=== PATIENT | female | born 1955 | race African-American/Black ===

== ENCOUNTER 2017-08-23 18:01 | Observation (INO) | payer OTHER ==
--- NOTE | 2017-08-23 19:07 | PDOC ---
History of Present Illness - General Chief Complaint: Palpitations Stated Complaint: PALPITATION Time Seen by Provider: 08/23/17 18:09 - History of Present Illness Initial Comments: 08/23/17 19:02 "The patient is a 62 year old female, with a significant past medical history of HTN, HLD, CAD, CHF (EF 35%) and rheumatologic disorders, who presents to the emergency department from [facility]) Urgent Care for evaluation of palpitations and SOB. Pt states that at 4pm today she began to feel her heart race. She took her pulse and measured it to be at around 100. She also endorses chest pressure and SOB. Since arriving to ER, her palpitations have resolved, but she continues to endorse chest pressure and mild SOB. Denies orthopnea. Denies leg swelling. Pt recently had temporal artery biopsy and was started on prednisone 1 week ago for temporal arteritis. She denies headache and dizziness. She denies fever, chills, nausea, vomit, diarrhea and constipation. She denies dysuria, frequency, urgency and hematuria. Allergies: aspirin, penicillins, pseudoephedrine, (see nursing note for more) Past surgical history: left temporal biopsy Social history: Pt denies toxic habits " Past History - Past Medical History Allergies/Adverse Reactions: Allergies Allergy/AdvReac Type Severity Reaction Status Date / Time aspirin Allergy Mild Rash Verified 08/23/17 18:13 Penicillins Allergy Mild Rash Verified 08/23/17 18:13 pseudoephedrine HCl Allergy Mild Difficulty Verified 08/23/17 18:13 [From Sudafed] Breathing Sulfa (Sulfonamide Allergy Mild Rash Verified 08/23/17 18:13 Antibiotics) [Sulfa(Sulfonamide Antibiotics)] acetaminophen [From Tylenol] Allergy Verified 08/23/17 18:15 codeine Allergy Verified 08/23/17 18:13 diphenhydramine HCl Allergy Verified 08/23/17 18:13 [From Benadryl] etanercept Allergy Verified 08/23/17 18:14 fludrocortisone Allergy Verified 08/23/17 18:14 gluten Allergy Verified 08/23/17 18:14 infliximab Allergy Verified 08/23/17 18:14 lactase [From Dairy Aid] Allergy Verified 08/23/17 18:14 naproxen Allergy Verified 08/23/17 18:13 NSAIDS (Non-Steroidal Allergy Verified 08/23/17 18:15 Anti-Inflamma pneumococcal vaccine Allergy Verified 08/23/17 18:13 pregabalin Allergy Verified 08/23/17 18:15 succimer Allergy Verified 08/23/17 18:14 Tetracyclines Allergy Verified 08/23/17 18:15 wheat Allergy Verified 08/23/17 18:15 Beef Containing Products AdvReac Mild Vomiting Verified 08/23/17 18:13 Home Medications: Ambulatory Orders Carvedilol [Coreg] 3.125 mg PO BID #60 tablet 03/07/16 Levothyroxine [Synthroid -] 88 mcg PO DAILY@0700 #30 tablet 03/07/16 Enalapril Maleate [Vasotec -] 5 mg PO BID 08/09/16 Cyclosporine [Restasis] 1 each OU Q12H 08/23/17 Epinephrine (Epi-Pen 0.3MG) [Epipen 0.3MG -] 0.3 mg IM ASDIR 08/23/17 Flaxseed Oil [Flaxseed] mg PO ASDIR 08/23/17 Hydroxychloroquine Sulfate [Plaquenil] 200 mg PO DAILY 08/23/17 Lidocaine 5% Patch [Lidoderm -] 1 patch TP DAILY 08/23/17 Prednisone [Deltasone -] 40 mg PO DAILY 08/23/17 Cardiac Disorders: Yes (CHF) COPD: (ILD) GI Disorders: Yes (IBS/GLUTEN INTOL) HTN: (HYPOTENSION) Thyroid Disease: Yes (hypothyroid.) Other medical history: TEMPORAL ARTERITIS - Surgical History Abdominal Surgery: Yes (tummy tuck/breast reduction 2004) - Suicide/Smoking/Psychosocial Hx Smoking Status: No Smoking History: Never smoked Have you smoked in the past 12 months: No Number of Cigarettes Smoked Daily: 0 Hx Alcohol Use: No Drug/Substance Use Hx: No Substance Use Type: None Hx Substance Use Treatment: No Review of Systems - Review of Systems Comments:: 08/23/17 19:04 """GENERAL/CONSTITUTIONAL: No fever or chills. No weakness. HEAD, EYES, EARS, NOSE AND THROAT: No change in vision. No ear pain or discharge. No sore throat. CARDIOVASCULAR: +chest pain, palpitations, and SOB RESPIRATORY: No cough, wheezing, or hemoptysis. GASTROINTESTINAL: No nausea, vomiting, diarrhea or constipation. GENITOURINARY: No dysuria, frequency, or change in urination. MUSCULOSKELETAL: No joint or muscle swelling or pain. No neck or back pain. SKIN: No rash NEUROLOGIC: No headache, vertigo, loss of consciousness, or change in strength/ sensation. ENDOCRINE: No increased thirst. No abnormal weight change. HEMATOLOGIC/LYMPHATIC: No anemia, easy bleeding, or history of blood clots. ALLERGIC/IMMUNOLOGIC: No hives or skin allergy. """ *Physical Exam - Vital Signs Last Vital Signs Temp Pulse Resp BP Pulse Ox 98.6 F 64 18 89/52 98 08/24/17 12:00 08/24/17 12:00 08/24/17 12:00 08/24/17 12:00 08/24/17 07:36 - Physical Exam Comments: 08/23/17 19:05 """GENERAL: Awake, alert, and fully oriented, in no acute distress HEAD: No signs of trauma EYES: PERRLA, EOMI, sclera anicteric, conjunctiva clear ENT: Auricles normal inspection, hearing grossly normal, nares patent, oropharynx clear without exudates. Moist mucosa NECK: Nontender, no stepoffs, Normal ROM, supple, no lymphadenopathy, JVD, or masses LUNGS: Breath sounds equal, clear to auscultation bilaterally. No wheezes, and no crackles HEART: Regular rate and rhythm, normal S1 and S2, no murmurs, rubs or gallops ABDOMEN: Soft, nontender, normoactive bowel sounds. No guarding, no rebound. No masses EXTREMITIES: Normal range of motion, no edema. No clubbing or cyanosis. No cords, erythema, or tenderness NEUROLOGICAL: Cranial nerves II through XII intact. 5/5 strength and sensation in all extremities, Normal speech, normal gait SKIN: Warm, Dry, normal turgor, no rashes or lesions noted. """ Heart Score/ECG Review - History History: Moderately suspicious - Electrocardiogram EKG: Non specific repolarization disturbance - Age Age: 45-65 - Risk Factors Risk Factors Heart Score: Yes Hx Hypercholesterolemia, Yes Hx Hypertension, Yes Hx Obesity Based on the list above the patient has:: >/=3 risk factors or Hx atherosclerotic disease - ECG Impressions Comment:: 08/23/17 19:05 NSR, LBBB, no KELLIE/STDs, no TWIs, unchanged since prior EKG. ED Treatment Course - LABORATORY CBC & Chemistry Diagram: 08/24/17 07:37 08/24/17 07:37 - ADDITIONAL ORDERS Additional order review: 08/23/17 18:55 RBC 3.43 L MCV 92.0 MCHC 34.6 RDW 11.8 MPV 8.0 Neutrophils % 75.1 D Lymphocytes % 15.6 D Monocytes % 5.3 Eosinophils % 0.0 D Basophils % 4.0 H D - RADIOLOGY Radiology Studies Ordered: Category Date Time Status CHEST PA & LAT [RAD] Stat Radiology 08/23/17 18:51 Completed - Medications Given in the ED: ED Medications Discontinued Medications Generic Name Dose Route Start Last Admin Trade Name Freq PRN Reason Stop Dose Admin Carvedilol 3.125 mg 08/24/17 10:00 08/24/17 09:57 Coreg - PO 3.125 mg BID LADI Administration Enalapril Maleate 5 mg 08/24/17 10:00 08/24/17 09:57 Vasotec - PO 5 mg BID LADI Administration Hydroxychloroquine Sulfate 200 mg 08/24/17 10:00 08/24/17 09:55 Plaquenil - PO 200 mg DAILY LADI Administration Levothyroxine Sodium 88 mcg 08/24/17 07:00 08/24/17 06:10 Synthroid - PO 88 mcg DAILY@0700 LADI Administration Prednisone 40 mg 08/24/17 10:00 08/24/17 09:57 Deltasone - PO 40 mg DAILY LADI Administration Medical Decision Making - Medical Decision Making 08/23/17 19:08 62 F with CAD, CHF, HTN, HLD presenting to ER with chest pressure, palpitations , and SOB. Concerning for ACS as pt has significant cardiac history. EKG with no new ischemic changes compared to prior. Also consider CHF exacerbation. PE is less likely as pt has no recent immobilization, no leg swelling, and is not hypoxic or tachycardic in ER. - Labs, trop, BNP - CXR - Admit tele 7PM Case discussed in detail with oncoming Emergency Physician, Dr. Plascencia, including history, physical exam and ancillary studies. Oncoming Emergency Physician has assumed care for the patient and will complete the evaluation and treatment. Patient is aware of the plan. *DC/Admit/Observation/Transfer Diagnosis at time of Disposition: Palpitations, Left bundle branch block (LBBB) Chest pain Qualifiers: Chest pain type: unspecified Qualified Code(s): R07.9 - Chest pain, unspecified - Discharge Dispostion Condition at time of disposition: Fair Admit: Yes - Attestations Physician Attestion: 08/25/17 10:23 I, Dr. Kelby Rao MD, attest that this document has been prepared under my direction and personally reviewed by me in its entirety. I further attest, that it accurately reflects all work, treatment, procedures and medical decision -making performed by me.
[2017-08-23 19:13] LABS: MCH 31.8 pg (25.7-33.7)
[2017-08-23 19:15] LABS: MCHC 34.6 g/dl (32.0-36.0); NEUTROPHILS 75.1 % (42.8-82.8); PLATELET COUNT 251 K/MM3 (134-434); RDW 11.8 % (11.6-15.6); WHITE BLOOD COUNT 10.6 K/mm3 (4.0-10.8)
[2017-08-23 19:18] LABS: INR 1.07 (0.82-1.09)
[2017-08-23 19:22] LABS: CPK 67 IU/L (26-192)
[2017-08-23 19:23] LABS: ALBUMIN 3.8 g/dl (3.5-5.0); ALK PHOS 60 U/L (32-92); ANION GAP 2 (8-16); BILIRUBIN,TOTAL 0.4 mg/dl (0.2-1.0); CALCIUM 9.3 mg/dl (8.4-10.2); CO2 29 mmol/L (22-28); CREATININE 0.8 mg/dl (0.6-1.3); GLUCOSE,RANDOM 96 mg/dl (74-106); SGOT/AST 18 U/L (10-42); SGPT/ALT 23 U/L (10-40); TOT PROT 7.4 g/dl (6.4-8.3)
--- NOTE | 2017-08-23 19:37 | PDOC ---
*Physical Exam - Vital Signs Last Vital Signs Temp Pulse Resp BP Pulse Ox 98.6 F 88 16 95/66 100 08/23/17 18:05 08/23/17 18:05 08/23/17 18:05 08/23/17 18:05 08/23/17 18:05 ED Treatment Course - LABORATORY CBC & Chemistry Diagram: 08/23/17 18:55 08/23/17 18:55 - ADDITIONAL ORDERS Additional order review: Laboratory Results 08/23/17 08/23/17 08/23/17 18:55 18:55 18:55 PT with INR 12.0 INR 1.07 PTT (Actin FS) Sodium 133 L Potassium 4.3 Chloride 102 Carbon Dioxide 29 H Anion Gap 2 L BUN 20 H D Creatinine 0.8 Creat Clearance w eGFR > 60 Random Glucose 96 Calcium 9.3 Total Bilirubin 0.4 AST 18 D ALT 23 D Alkaline Phosphatase 60 D Creatine Kinase 67 Total Protein 7.4 Albumin 3.8 08/23/17 18:55 PT with INR INR PTT (Actin FS) 27.1 Sodium Potassium Chloride Carbon Dioxide Anion Gap BUN Creatinine Creat Clearance w eGFR Random Glucose Calcium Total Bilirubin AST ALT Alkaline Phosphatase Creatine Kinase Total Protein Albumin 08/23/17 18:55 RBC 3.43 L MCV 92.0 MCHC 34.6 RDW 11.8 MPV 8.0 Neutrophils % 75.1 D Lymphocytes % 15.6 D Monocytes % 5.3 Eosinophils % 0.0 D Basophils % 4.0 H D Progress Note - Progress Note Progress Note: Care of this patient was transferred to [place] from Dr. elder at 1930. Patient is a 62-year-old female with significant history of autoimmune disease and swelling as coronary artery disease. He has dermatomyositis and rheumatoid arthritis. Patient also has at her baseline on her cardiogram a left bundle branch block. Patient came in today with approximately 4 hours of chest pressure, palpitations and shortness of breath. Patient's cardiogram was unchanged from prior. Palpitations have since resolved however her chest pressure is still present and she rates it as mild. Patient's workup is pending. Patient will be admitted to the hospitalist service once her workup is complete. Patient's troponin was negative and her workup was otherwise unremarkable. Discussed admission with the hospitalist patient will be placed in an observation bed to rule out ACS. *DC/Admit/Observation/Transfer Diagnosis at time of Disposition: Palpitations, Left bundle branch block (LBBB) Chest pain Qualifiers: Chest pain type: unspecified Qualified Code(s): R07.9 - Chest pain, unspecified - Discharge Dispostion Condition at time of disposition: Fair Admit: Yes
[2017-08-23 19:59] LABS: TROPONIN I (DFP) < 0.03 ng/ml (0.03-0.50)
[2017-08-23 21:48] VITALS: BMI 27.6
--- NOTE | 2017-08-23 22:41 | HP ---
CHIEF COMPLAINT: chest pressure, SOB, palpitations PCP: outside facility, Cardio: Theo Meade HISTORY OF PRESENT ILLNESS: This is a 62 year old female with a past medical history significant for Hypotension, CHF (EF35%) who presented with sudden onset palpitations, SOB and chest pressure at 4pm today. Pt reports pressure has resolved and palpitations are less but SOB persists when she gets up to go to the bathroom. ER course was notable for: (1) troponin neg (2) BNP 563 (3) CXR without pulmonary vascular congestion or infiltrates Recent Travel: pt denies PAST MEDICAL HISTORY: Hypotension CHF (recent cardiac cath with EF 35%) Sjogrens RA temporal arteritis (dx 1 week ago) on prednisone Reynaud's IBS/gluten intolerant PAST SURGICAL HISTORY: L temporal artery biopsy tummy tuck/breast reduction Social History: Smoking: pt denies Alcohol: pt denies Drugs: pt denies Family History: mother age 71, COPD, DM father in his 30s, drugs/ETOH one half brother with sickle cell one son age 34, dx with HF, recent ablation for arrhythmia one son with asthma Allergies aspirin Allergy (Mild, Verified 08/23/17 18:13) Rash Penicillins Allergy (Mild, Verified 08/23/17 18:13) Rash pseudoephedrine HCl [From Sudafed] Allergy (Mild, Verified 08/23/17 18:13) Difficulty Breathing Sulfa (Sulfonamide Antibiotics) [Sulfa(Sulfonamide Antibiotics)] Allergy (Mild, Verified 08/23/17 18:13) Rash acetaminophen [From Tylenol] Allergy (Verified 08/23/17 18:15) codeine Allergy (Verified 08/23/17 18:13) Diphenhydramine HCl [From Benadryl] Allergy (Verified 08/23/17 18:13) etanercept Allergy (Verified 08/23/17 18:14) fludrocortisone Allergy (Verified 08/23/17 18:14) gluten Allergy (Verified 08/23/17 18:14) infliximab Allergy (Verified 08/23/17 18:14) lactase [From Dairy Aid] Allergy (Verified 08/23/17 18:14) naproxen Allergy (Verified 08/23/17 18:13) NSAIDS (Non-Steroidal Anti-Inflamma Allergy (Verified 08/23/17 18:15) pneumococcal vaccine Allergy (Verified 08/23/17 18:13) pregabalin Allergy (Verified 08/23/17 18:15) succimer Allergy (Verified 08/23/17 18:14) Tetracyclines Allergy (Verified 08/23/17 18:15) wheat Allergy (Verified 08/23/17 18:15) Beef Containing Products Adverse Reaction (Mild, Verified 08/23/17 18:13) Vomiting HOME MEDICATIONS: 3 Medication Instructions Recorded Carvedilol [Coreg] 3.125 mg PO BID #60 tablet 03/07/16 Levothyroxine [Synthroid -] 88 mcg PO DAILY@0700 #30 tablet 03/07/16 Enalapril Maleate [Vasotec -] 5 mg PO BID 08/09/16 Cyclosporine [Restasis] 1 each OU Q12H 08/23/17 Epinephrine (Epi-Pen 0.3MG) 0.3 mg IM ASDIR 08/23/17 [Epipen 0.3MG -] Flaxseed Oil [Flaxseed] mg PO ASDIR 08/23/17 Hydroxychloroquine Sulfate 200 mg PO DAILY 08/23/17 [Plaquenil] Lidocaine 5% Patch [Lidoderm Patch 1 patch TP DAILY 08/23/17 -] Prednisone [Deltasone -] 40 mg PO DAILY 08/23/17 REVIEW OF SYSTEMS CONSTITUTIONAL: Absent: fever, chills, diaphoresis, generalized weakness, malaise, loss of appetite, weight change HEENT: Absent: rhinorrhea, nasal congestion, throat pain, throat swelling, difficulty swallowing, mouth swelling, ear pain, eye pain, visual changes CARDIOVASCULAR: Present: chest pain, palpitations Absent: syncope, irregular heart rate, lightheadedness, peripheral edema RESPIRATORY: Present: shortness of breath, dyspnea with exertion Absent: cough, orthopnea, wheezing, stridor, hemoptysis GASTROINTESTINAL: Absent: abdominal pain, abdominal distension, nausea, vomiting, diarrhea, constipation, melena, hematochezia GENITOURINARY: Absent: dysuria, frequency, urgency, hesitancy, hematuria, flank pain, genital pain MUSCULOSKELETAL: Absent: myalgia, arthralgia, joint swelling, back pain, neck pain SKIN: Absent: rash, itching, pallor HEMATOLOGIC/IMMUNOLOGIC: Absent: easy bleeding, easy bruising, lymphadenopathy, frequent infections ENDOCRINE: Absent: unexplained weight gain, unexplained weight loss, heat intolerance, cold intolerance NEUROLOGIC: Absent: headache, focal weakness or paresthesias, dizziness, unsteady gait, seizure, mental status changes, bladder or bowel incontinence PSYCHIATRIC: Absent: anxiety, depression, suicidal or homicidal ideation, hallucinations. PHYSICAL EXAMINATION Vital Signs - 24 hr 3 08/23/17 08/23/17 08/23/17 08/23/17 18:05 20:30 20:40 22:46 Temperature 98.6 F 97.8 F 97.8 F Pulse Rate 88 78 Pulse Rate [ 62 Left Apical] Respiratory 16 16 18 Rate Blood Pressure 95/66 96/57 Blood Pressure 114/72 [Right Arm] O2 Sat by Pulse 100 99 99 100 Oximetry (%) GENERAL: Awake, alert, and fully oriented, in no acute distress. HEAD: Normal with no signs of trauma. bandage clean dry and intact to right baptism EYES: Pupils equal, round and reactive to light, extraocular movements intact, sclera anicteric, conjunctiva clear. No lid lag. EARS, NOSE, THROAT: Ears normal, nares patent, oropharynx clear without exudates. Moist mucous membranes. NECK: Normal range of motion, supple without lymphadenopathy, JVD, or masses. LUNGS: Breath sounds equal, clear to auscultation bilaterally. No wheezes, and no crackles. No accessory muscle use. HEART: Regular rate and rhythm, normal S1 and S2 without murmur, rub or gallop. ABDOMEN: Soft, nontender, not distended, normoactive bowel sounds, no guarding, no rebound, no masses. No hepatomegaly or splenomegaly. MUSCULOSKELETAL: Normal range of motion at all joints. No bony deformities or tenderness. No CVA tenderness. UPPER EXTREMITIES: 2+ pulses, warm, well-perfused. No cyanosis. No clubbing. No peripheral edema. LOWER EXTREMITIES: 2+ pulses, warm, well-perfused. No calf tenderness. No peripheral edema. NEUROLOGICAL: Cranial nerves II-XII intact. Normal speech. Normal gait. PSYCHIATRIC: Cooperative. Good eye contact. Appropriate mood and affect. SKIN: Warm, dry, normal turgor, no rashes or lesions noted, normal capillary refill. Laboratory Results - last 24 hr 3 08/23/17 08/23/17 08/23/17 18:55 18:55 18:55 WBC 10.6 D RBC 3.43 L Hgb 10.9 Hct 31.5 L MCV 92.0 MCH 31.8 MCHC 34.6 RDW 11.8 Plt Count 251 D MPV 8.0 Neutrophils % 75.1 D Lymphocytes % 15.6 D Monocytes % 5.3 Eosinophils % 0.0 D Basophils % 4.0 H D PT with INR 12.0 INR 1.07 PTT (Actin FS) 27.1 Sodium 133 L Potassium 4.3 Chloride 102 Carbon Dioxide 29 H Anion Gap 2 L BUN 20 H D Creatinine 0.8 Creat Clearance w eGFR > 60 Random Glucose 96 Calcium 9.3 Total Bilirubin 0.4 AST 18 D ALT 23 D Alkaline Phosphatase 60 D Creatine Kinase 67 Troponin I < 0.03 L B-Natriuretic Peptide 563.16 H Total Protein 7.4 Albumin 3.8 Radiology Reports Chest x-ray, PA and lateral. Since prior chest x-ray dated 03/04/2016, the cardiac silhouette remains slightly enlarged. Bilateral perihilar increased lung markings are present without evidence of focal infiltrates. Mediastinum and visualized osseous structures appear grossly intact with evidence of osteopenia. Impression No significant interval change. Mild cardiomegaly without gross evidence of pulmonary venous congestion or focal infiltrates. Reported By: Montse Shepard MD 08/23/171930 ECG Sinus rhythm with 1st degree AV block Vent rate 66, QTC 471 LBBB, Left axis deviation (present on previous ECG) ASSESSMENT/PLAN: 62yF with PMH Hypotension, CHF (recent cardiac cath with EF 35%), Sjogrens, RA, temporal arteritis (dx 1 week ago) on prednisone, Reynaud's, IBS/gluten intolerant presented with palpitations associated with chest pressure and SOB. She is being admitted for further observation. Palpitations/chest pressure - troponin neg x 1, trend x 2 more - cont cardiac monitoring - cardiology consult chronic systolic CHF - cont home VALENCIA/coreg - no s/s acute exacerbation despite elevated BNP Sjogren's - cont restasis temporal arteritis - cont prednisone 40mg qd hypothyroid - cont synthroid DVT PPX - low risk, expected LOS <48h, encourage ambulation FEN - tolerating po, IVF not indicated - BMP in am - gluten free diet with multiple restriction. Dispo: Pt currently requires inpatient cardiac monitoring for management of her emergent condition. Visit type - Emergency Visit Emergency Visit: Yes ED Registration Date: 08/23/17 Care time: The patient presented to the Emergency Department on the above date and was hospitalized for further evaluation of their emergent condition. - New Patient This patient is new to me today: Yes Date on this admission: 08/23/17 - Critical Care Critical Care patient: No
[2017-08-23] MEDS ORDERED: PATIENT'S OWN MEDICATION (NON-FORMULARY) (Cyclosporine [Restasis] 1 EACH) OU SCH (23:45)
[2017-08-24 01:51] LABS: CPK 71 IU/L (26-192)
[2017-08-24 01:52] LABS: TROPONIN I < 0.02 ng/ml (0.00-0.05)
[2017-08-24 05:49] VITALS: TEMP 98.6
[2017-08-24] MEDS ORDERED: LEVOTHYROXINE NA 88 MCG TABLET (FP) PO SCH (07:00)
[2017-08-24 08:02] LABS: BASOPHIL 0.6 % (0-2.0); EOSINOPHIL 0.3 % (0-4.5); MCH 30.9 pg (25.7-33.7); MCHC 32.5 g/dl (32.0-36.0); NEUTROPHILS 62.9 % (42.8-82.8); PLATELET COUNT 268 K/MM3 (134-434); RDW 12.1 % (11.6-15.6)
[2017-08-24 08:24] LABS: ANION GAP 3 (8-16); CO2 30 mmol/L (22-28); GLUCOSE,RANDOM 81 mg/dl (74-106); PHOSPHOROUS 4.5 mg/dl (2.5-4.6)
[2017-08-24] MEDS: predniSONE 20 MG TABLET (UD) PO SCH ×2 (08:33→09:57)
[2017-08-24] MEDS: HYDROXYCHLOROQUINE SO4 200 MG TABLET (FP) PO SCH ×2 (08:34→09:55)
[2017-08-24 08:37] VITALS: BP 89/52; PULSE 64
--- NOTE | 2017-08-24 09:24 | DS ---
Physical Exam: SUBJECTIVE: Patient seen and examined OBJECTIVE: Vital Signs Period Temp Pulse Resp BP Sys/Acevedo Pulse Ox Last 24 Hr 97.8 F-98.6 F 64-78 16-18 89-96/50-57 98-100 PHYSICAL EXAM GENERAL: The patient is awake, alert, and fully oriented, in no acute distress. HEAD: Normal with no signs of trauma. EYES: PERRL, extraocular movements intact, sclera anicteric, conjunctiva clear. ENT: Ears normal, nares patent, oropharynx clear without exudates, moist mucous membranes. NECK: Trachea midline, full range of motion, supple. LUNGS: Breath sounds equal, clear to auscultation bilaterally, no wheezes, no crackles, no accessory muscle use. HEART: Regular rate and rhythm, S1, S2 without murmur, rub or gallop. ABDOMEN: Soft, nontender, nondistended, normoactive bowel sounds, no guarding, no rebound, no hepatosplenomegaly, no masses. EXTREMITIES: 2+ pulses, warm, well-perfused, no edema. NEUROLOGICAL: Cranial nerves II through XII grossly intact. Normal speech, gait not observed. PSYCH: Normal mood, normal affect. SKIN: Warm, dry, normal turgor, no rashes or lesions noted. LABS Laboratory Results - last 24 hr 08/24/17 08/24/17 08/24/17 01:00 07:37 07:37 WBC 8.0 RBC 3.51 L Hgb 10.8 Hct 33.3 MCV 95.0 MCH 30.9 MCHC 32.5 RDW 12.1 Plt Count 268 MPV 8.0 Neutrophils % 62.9 Lymphocytes % 29.5 D Monocytes % 6.7 Eosinophils % 0.3 D Basophils % 0.6 Sodium 135 L Potassium 4.4 Chloride 102 Carbon Dioxide 30 H Anion Gap 3 L BUN 13 D Random Glucose 81 Calcium 9.0 Phosphorus 4.5 Magnesium 2.0 Creatine Kinase 71 Troponin I < 0.02 08/24/17 07:37 WBC RBC Hgb Hct MCV MCH MCHC RDW Plt Count MPV Neutrophils % Lymphocytes % Monocytes % Eosinophils % Basophils % Sodium Potassium Chloride Carbon Dioxide Anion Gap BUN Random Glucose Calcium Phosphorus Magnesium Creatine Kinase Troponin I < 0.03 L HOSPITAL COURSE: Date of Admission:08/23/17 Date of Discharge: 08/24/17 Minutes to complete discharge: 45 Discharge Summary Reason For Visit: CHEST PAIN, PALPITATIONS, R/O ACS Current Active Problems Chest pain (Acute) Left bundle branch block (LBBB) (Acute) Left ventricular systolic dysfunction, NYHA class 2 (Acute) Nonischemic dilated cardiomyopathy (Acute) Palpitations (Acute) Condition: Fair - Home Medications Comprehensive Discharge Medication List: Ambulatory Orders Carvedilol [Coreg] 3.125 mg PO BID #60 tablet 03/07/16 Levothyroxine [Synthroid -] 88 mcg PO DAILY@0700 #30 tablet 03/07/16 Enalapril Maleate [Vasotec -] 5 mg PO BID 08/09/16 Cyclosporine [Restasis] 1 each OU Q12H 08/23/17 Epinephrine (Epi-Pen 0.3MG) [Epipen 0.3MG -] 0.3 mg IM ASDIR 08/23/17 Flaxseed Oil [Flaxseed] mg PO ASDIR 08/23/17 Hydroxychloroquine Sulfate [Plaquenil] 200 mg PO DAILY 08/23/17 Lidocaine 5% Patch [Lidoderm Patch -] 1 patch TP DAILY 08/23/17 Prednisone [Deltasone -] 40 mg PO DAILY 08/23/17
[2017-08-24] MEDS ORDERED: ENALAPRIL MALEATE 5 MG TABLET (FP) PO SCH ×2 (10:00)
[2017-08-24] MEDS ORDERED: PATIENT'S OWN MEDICATION (NON-FORMULARY) (Cyclosporine [Restasis] 1 EACH) OU SCH (10:00)
[2017-08-24] MEDS ORDERED: CARVEDILOL 3.125 MG TABLET (FP) PO SCH ×2 (10:00)
[2017-08-24 10:14] LABS: CREATININE 0.7 mg/dl (0.6-1.3)
--- NOTE | 2017-08-24 11:44 | EKG ---
Test Reason : Blood Pressure : / mmHG Vent. Rate : 066 BPM Atrial Rate : 066 BPM P-R Int : 212 ms QRS Dur : 158 ms QT Int : 450 ms P-R-T Axes : 060 -45 088 degrees QTc Int : 471 ms SINUS RHYTHM WITH 1ST DEGREE A-V BLOCK LEFT AXIS DEVIATION LEFT BUNDLE BRANCH BLOCK ABNORMAL ECG WHEN COMPARED WITH ECG OF 12-JAN-2013 18:07, LEFT BUNDLE BRANCH BLOCK IS NOW PRESENT CRITERIA FOR ANTERIOR INFARCT ARE NO LONGER PRESENT Confirmed by DEMETRA MATHEWS MD ([id number] on 08/24/2017 11:44:07 AM Referred By: DR MENDOZA Confirmed By:DEMETRA MATHEWS MD
== END 2017-08-24 14:30 | disposition home or self-care (01) ==
LOC: FER 18:01 → FM/S 20:40
PROVIDERS: ADMIT Internal Medicine; ATTEND Nurse Practitioner Family
DX: R07.9 Chest pain, unspecified (principal); I44.7 Left bundle-branch block, unspecified; R00.2 Palpitations; I50.23 Acute on chronic systolic (congestive) heart failure; M35.00 Sjogren syndrome, unspecified; M31.6 Other giant cell arteritis; E03.9 Hypothyroidism, unspecified; I10 Essential (primary) hypertension; E78.5 Hyperlipidemia, unspecified; I25.10 Atherosclerotic heart disease of native coronary artery without angina pectoris; K58.9 Irritable bowel syndrome, unspecified; Z88.0 Allergy status to penicillin; Z88.6 Allergy status to analgesic agent; Z88.8 Allergy status to other drugs, medicaments and biological substances; Z91.011 Allergy to milk products; Z91.018 Allergy to other foods; I51.5 Myocardial degeneration
CPT/HCPCS: 36415; 71020-TC; 80048; 80053; 83735; 83880; 84100; 84484; 85025; 85610; 85730; 93005; 99285-25; G0378

== ENCOUNTER 2017-09-19 18:39 | Emergency (ER) | payer OTHER ==
--- NOTE | 2017-09-19 18:49 | PDOC ---
History of Present Illness - General Chief Complaint: Respiratory Stated Complaint: SHORTNESS OF BREATH COUGH AND FELT HEART BEATING - History of Present Illness Initial Comments: 09/20/17 07:15 Patient brought into the emergency room with shortness of breath. Briefly evaluated. No acute distress. Lungs clear to auscultation. Lab studies, EKG, and x-ray ordered. Signed out to Dr. Gary 7 PM pending complete evaluation and treatment. Past History - Past Medical History Allergies/Adverse Reactions: Allergies Allergy/AdvReac Type Severity Reaction Status Date / Time pseudoephedrine HCl Allergy Intermediate Difficulty Verified 09/19/17 19:23 [From Sudafed] Breathing aspirin Allergy Mild Rash Verified 09/19/17 19:22 Penicillins Allergy Mild Rash Verified 09/19/17 19:23 Sulfa (Sulfonamide Allergy Mild Rash Verified 09/19/17 19:23 Antibiotics) [Sulfa(Sulfonamide Antibiotics)] acetaminophen [From Tylenol] Allergy Verified 09/19/17 19:24 codeine Allergy Verified 09/19/17 19:24 diphenhydramine HCl Allergy Verified 09/19/17 19:24 [From Benadryl] etanercept Allergy Verified 09/19/17 19:25 fludrocortisone Allergy Verified 09/19/17 19:25 gluten Allergy Verified 09/19/17 19:25 infliximab Allergy Verified 09/19/17 19:25 lactase [From Dairy Aid] Allergy Verified 09/19/17 19:25 naproxen Allergy Verified 09/19/17 19:25 NSAIDS (Non-Steroidal Allergy Verified 09/19/17 19:25 Anti-Inflamma pneumococcal vaccine Allergy Verified 09/19/17 19:25 pregabalin Allergy Verified 09/19/17 19:25 succimer Allergy Verified 09/19/17 19:25 Tetracyclines Allergy Verified 09/19/17 19:25 wheat Allergy Verified 09/19/17 19:25 Beef Containing Products AdvReac Mild Vomiting Verified 08/23/17 18:13 Home Medications: Ambulatory Orders Carvedilol [Coreg] 3.125 mg PO BID #60 tablet 03/07/16 Enalapril Maleate [Vasotec -] 5 mg PO BID 08/09/16 Cyclosporine [Restasis] 1 each OU Q12H 08/23/17 Epinephrine (Epi-Pen 0.3MG) [Epipen 0.3MG -] 0.3 mg IM ASDIR 08/23/17 Hydroxychloroquine Sulfate [Plaquenil] 200 mg PO DAILY 08/23/17 Lidocaine 5% Patch [Lidoderm -] 1 patch TP DAILY 08/23/17 Prednisone [Deltasone -] 10 mg PO 08/23/17 Methylprednisolone [Medrol -] 4 mg PO ASDIR #12 tablet 09/19/17 Anemia: Yes Asthma: No Cancer: No Cardiac Disorders: Yes (CHF) COPD: (ILD) CHF: Yes GI Disorders: Yes (IBS/GLUTEN INTOL) Disorders: No HTN: Yes Hypercholesterolemia: Yes Liver Disease: No Thyroid Disease: Yes (hypothyroid.) - Surgical History Abdominal Surgery: Yes (tummy tuck/breast reduction 2004) Appendectomy: Yes - Suicide/Smoking/Psychosocial Hx Smoking Status: No Smoking History: Never smoked Have you smoked in the past 12 months: No Number of Cigarettes Smoked Daily: 0 Hx Alcohol Use: No Drug/Substance Use Hx: No Substance Use Type: None Hx Substance Use Treatment: No ED Treatment Course - LABORATORY CBC & Chemistry Diagram: 09/19/17 19:21 09/19/17 19:21 *DC/Admit/Observation/Transfer Diagnosis at time of Disposition: Hx of temporal arteritis - Discharge Dispostion Disposition: HOME Condition at time of disposition: Stable - Prescriptions Prescriptions: Methylprednisolone [Medrol -] 4 mg PO ASDIR #12 tablet - Patient Instructions Printed Discharge Instructions: Temporal Arteritis Additional Instructions: Alternate 12 mg Medrol (3 tabs of 4 mg each) with 16 mg daily as previously directed Continue other medications as prescribed Drink plenty of fluids Return to ER if you have severe weakness/palpitations/shortness of breath Follow-up with your payroll specialist as scheduled
[2017-09-19 18:56] VITALS: TEMP 98.3; BMI 28.1
[2017-09-19 19:38] LABS: BASOPHIL 0.2 % (0-2.0); MCH 32.6 pg (25.7-33.7); MEAN PLT VOLUME 7.9 fl (7.5-11.1); NEUTROPHILS 74.2 % (42.8-82.8); PLATELET COUNT 273 K/MM3 (134-434); RDW 12.1 % (11.6-15.6); WHITE BLOOD COUNT 6.5 K/mm3 (4.0-10.8)
[2017-09-19 19:55] LABS: ALBUMIN 3.6 g/dl (3.5-5.0); ALK PHOS 68 U/L (32-92); ANION GAP 7 (8-16); BILIRUBIN,TOTAL 0.6 mg/dl (0.2-1.0); CALCIUM 9.3 mg/dl (8.4-10.2); CO2 28 mmol/L (22-28); CPK 47 IU/L (26-192); CREATININE 0.9 mg/dl (0.6-1.3); GLUCOSE,RANDOM 108 mg/dl (74-106); SGOT/AST 23 U/L (10-42); SGPT/ALT 27 U/L (10-40); TOT PROT 6.8 g/dl (6.4-8.3)
[2017-09-19] MEDS ORDERED: SODIUM CHLORIDE 500 ML IV STA (20:22)
[2017-09-19 20:30] LABS: TROPONIN I (DFP) < 0.03 ng/ml (0.03-0.50)
--- NOTE | 2017-09-19 20:55 | PDOC ---
History of Present Illness - History of Present Illness Initial Comments: 09/19/17 20:55 62 year old female, with a significant past medical history of HTN, HLD, CAD, CHF, temporal arteritis and rheumatologic disorders, who presents to the emergency department with palpitations and SOB since about 6 pm today. She checked her pulse, which was 116. Patient reports the SOB was a sudden onset when she was finishing up dinner. She also reports chronic headaches since her temporal arteritis. She also reports poor side effects from the tapering of prednisone. Patient denies chest pain, dizziness. Denies fever, chills. Denies NVD. <Joyce Moran - Last Filed: 09/19/17 21:01> <Rosio Gary - Last Filed: 09/20/17 06:08> - General Chief Complaint: Respiratory Stated Complaint: SHORTNESS OF BREATH COUGH AND FELT HEART BEATING Time Seen by Provider: 09/19/17 19:17 Past History <Joyce Moran - Last Filed: 09/19/17 21:01> - Past Medical History Anemia: Yes Asthma: No Cancer: No Cardiac Disorders: Yes (CHF) COPD: (ILD) CHF: Yes GI Disorders: Yes (IBS/GLUTEN INTOL) Disorders: No HTN: Yes Hypercholesterolemia: Yes Liver Disease: No Thyroid Disease: Yes (hypothyroid.) Other medical history: TEMPORAL ARTERITIS - Surgical History Abdominal Surgery: Yes (tummy tuck/breast reduction 2004) Appendectomy: Yes - Suicide/Smoking/Psychosocial Hx Smoking Status: No Smoking History: Never smoked Have you smoked in the past 12 months: No Number of Cigarettes Smoked Daily: 0 Information on smoking cessation initiated: No Hx Alcohol Use: No Drug/Substance Use Hx: No Substance Use Type: None Hx Substance Use Treatment: No <Rosio Gary - Last Filed: 09/20/17 06:08> - Past Medical History Allergies/Adverse Reactions: Allergies Allergy/AdvReac Type Severity Reaction Status Date / Time pseudoephedrine HCl Allergy Intermediate Difficulty Verified 09/19/17 19:23 [From Sudafed] Breathing aspirin Allergy Mild Rash Verified 09/19/17 19:22 Penicillins Allergy Mild Rash Verified 09/19/17 19:23 Sulfa (Sulfonamide Allergy Mild Rash Verified 09/19/17 19:23 Antibiotics) [Sulfa(Sulfonamide Antibiotics)] acetaminophen [From Tylenol] Allergy Verified 09/19/17 19:24 codeine Allergy Verified 09/19/17 19:24 diphenhydramine HCl Allergy Verified 09/19/17 19:24 [From Benadryl] etanercept Allergy Verified 09/19/17 19:25 fludrocortisone Allergy Verified 09/19/17 19:25 gluten Allergy Verified 09/19/17 19:25 infliximab Allergy Verified 09/19/17 19:25 lactase [From Dairy Aid] Allergy Verified 09/19/17 19:25 naproxen Allergy Verified 09/19/17 19:25 NSAIDS (Non-Steroidal Allergy Verified 09/19/17 19:25 Anti-Inflamma pneumococcal vaccine Allergy Verified 09/19/17 19:25 pregabalin Allergy Verified 09/19/17 19:25 succimer Allergy Verified 09/19/17 19:25 Tetracyclines Allergy Verified 09/19/17 19:25 wheat Allergy Verified 09/19/17 19:25 Beef Containing Products AdvReac Mild Vomiting Verified 08/23/17 18:13 Home Medications: Ambulatory Orders Carvedilol [Coreg] 3.125 mg PO BID #60 tablet 03/07/16 Enalapril Maleate [Vasotec -] 5 mg PO BID 08/09/16 Cyclosporine [Restasis] 1 each OU Q12H 08/23/17 Epinephrine (Epi-Pen 0.3MG) [Epipen 0.3MG -] 0.3 mg IM ASDIR 08/23/17 Hydroxychloroquine Sulfate [Plaquenil] 200 mg PO DAILY 08/23/17 Lidocaine 5% Patch [Lidoderm -] 1 patch TP DAILY 08/23/17 Prednisone [Deltasone -] 10 mg PO 08/23/17 Methylprednisolone [Medrol -] 4 mg PO ASDIR #12 tablet 09/19/17 Review of Systems - Review of Systems Constitutional: No: Chills, Diaphoresis, Fever HEENTM: No: Symptoms Reported Respiratory: Yes: Shortness of Breath. No: Cough, Wheezing Cardiac (ROS): Yes: Palpitations. No: Chest Pain, Edema, Lightheadedness ABD/GI: No: Symptoms Reported Musculoskeletal: No: Back Pain, Neck Pain Neurological: Yes: Headache. No: Numbness, Tingling, Dizziness All Other Systems: Reviewed and Negative <Joyce Moran - Last Filed: 09/19/17 21:01> *Physical Exam - Vital Signs Last Vital Signs Temp Pulse Resp BP Pulse Ox 98.3 F 82 20 88/65 100 09/19/17 18:42 09/19/17 19:56 09/19/17 19:56 09/19/17 20:35 09/19/17 19:56 - Physical Exam Comments: 09/19/17 20:56 GENERAL: The patient is awake, alert, and fully oriented, in no acute distress. HEAD: Normal with no signs of trauma. EYES: Pupils equal, round and reactive to light, extraocular movements intact, sclera anicteric, conjunctiva clear with no pallor. ENT: Ears normal, nares patent, oropharynx clear without exudates. Dry mucous membranes. NECK: Normal range of motion, supple without lymphadenopathy, JVD, or masses. LUNGS: Breath sounds equal, clear to auscultation bilaterally. No wheeze/ crackles. Speaking in full sentences. HEART: Regular rate and rhythm, normal S1 and S2 without murmur or rub. ABDOMEN: Soft/nontender/nondistended. BS wnl. No guarding or rebound. No palpable masses. No hepatosplenomegaly. EXTREMITIES: Normal range of motion, no edema. No clubbing or cyanosis. No cords, erythema, or tenderness. NEUROLOGICAL: Cranial nerves II through XII grossly intact. Normal speech, normal gait. PSYCH: Normal mood, normal affect. SKIN: Warm, Dry, normal turgor, no rashes or lesions noted. <Khadijah Moranmackenzie Yu - Last Filed: 09/19/17 21:01> - Vital Signs Last Vital Signs Temp Pulse Resp BP Pulse Ox 98.3 F 82 20 88/65 100 09/19/17 18:42 09/19/17 19:56 09/19/17 19:56 09/19/17 20:35 09/19/17 19:56 <Rosio Gary - Last Filed: 09/20/17 06:08> ED Treatment Course - LABORATORY CBC & Chemistry Diagram: 09/19/17 19:21 09/19/17 19:21 - ADDITIONAL ORDERS Additional order review: Laboratory Results 09/19/17 19:21 Sodium 136 Potassium 4.4 Chloride 101 Carbon Dioxide 28 Anion Gap 7 L BUN 20 H D Creatinine 0.9 D Creat Clearance w eGFR > 60 Random Glucose 108 H D Calcium 9.3 Total Bilirubin 0.6 D AST 23 D ALT 27 Alkaline Phosphatase 68 Creatine Kinase 47 Troponin I < 0.03 L Total Protein 6.8 Albumin 3.6 09/19/17 19:21 RBC 3.61 MCV 93.0 MCHC 35.0 RDW 12.1 MPV 7.9 Neutrophils % 74.2 Lymphocytes % 8.8 D Monocytes % 16.8 H D Eosinophils % 0.0 D Basophils % 0.2 <Joyce Moran - Last Filed: 09/19/17 21:01> - LABORATORY CBC & Chemistry Diagram: 09/19/17 19:21 09/19/17 19:21 - ADDITIONAL ORDERS Additional order review: Laboratory Results 09/19/17 19:21 Sodium 136 Potassium 4.4 Chloride 101 Carbon Dioxide 28 Anion Gap 7 L BUN 20 H D Creatinine 0.9 D Creat Clearance w eGFR > 60 Random Glucose 108 H D Calcium 9.3 Total Bilirubin 0.6 D AST 23 D ALT 27 Alkaline Phosphatase 68 Creatine Kinase 47 Troponin I < 0.03 L Total Protein 6.8 Albumin 3.6 09/19/17 19:21 RBC 3.61 MCV 93.0 MCHC 35.0 RDW 12.1 MPV 7.9 Neutrophils % 74.2 Lymphocytes % 8.8 D Monocytes % 16.8 H D Eosinophils % 0.0 D Basophils % 0.2 <Rosio Gary - Last Filed: 09/20/17 06:08> Progress Note - Progress Note Progress Note: Documentation has been prepared under my direction and personally reviewed by me in its entirety. I attest that this documented accurately reflects all work, treatment, procedures and medical decision making performed by me. <Rosio Gary - Last Filed: 09/20/17 06:08> Medical Decision Making - Medical Decision Making As noted above, this 62-year-old woman with a history of hypertension/ hyperlipidemia/coronary artery disease and recently being diagnosed with temporal arteritis presents with a few hour history of palpitations/rapid heartbeat and shortness of breath. Patient's rapid heartbeat and dyspnea improved rapidly when she arrived in the emergency room. She attributes her symptoms to the administration and taper of anti-inflammatory steroids that she had been given for her temporal arteritis of the last 6 weeks. Over the last 2 weeks she has been on a taper schedule and she believes that she may have been tapering too quickly with prednisone being substituted for prednisolone on alternating days. Exam as noted. 12-lead electrocardiogram was performed and interpreted by me. This showed normal sinus rhythm with LBBB at 94 bpm. This is unchanged from previous electrocardiograms. CBC/chemistry profile/cardiac enzymes were performed. No significant abnormality seen in her laboratory evaluation. While patient was awaiting results of evaluation, her systolic blood pressure dropped to the high 70s/low 80s. The patient states that she is normally hypotensive. During the time of the low systolic pressure, patient had no particular increase in symptoms. She had no new symptoms during that time either. Patient states that she normally does not drink enough fluids and may have not even had her usual baseline fluid intake today. Patient given a small (approximately 300 mL) bolus of IV normal saline. Repeat blood pressure reading was 91/61 which is at baseline for this patient. Patient states that she is feeling significantly better. Since patient would prefer to be taking all Medrol during her taper schedule, prescription for Medrol 12 milligrams (3 tabs of 4 mg)#9 tabs to be taken on alternating days until she sees her insole and outsole splitter next Sunday, September 26. She already has Medrol 16 mg tablets for the alternate days. The patient should return to the emergency room prior to seeing her insole and outsole splitter if she has any further palpitations/persistent shortness of breath or chest pain <Rosio Gary - Last Filed: 09/20/17 06:08> *DC/Admit/Observation/Transfer - Attestations Scribe Attestion: 09/19/17 20:56 Documentation prepared by Joyce Moran, acting as medical sociologist for Rosio Gary MD. <Joyce Moran - Last Filed: 09/19/17 21:01> <Rosio Gary - Last Filed: 09/20/17 06:08> Diagnosis at time of Disposition: Hx of temporal arteritis - Discharge Dispostion Disposition: HOME Condition at time of disposition: Stable - Prescriptions Prescriptions: Methylprednisolone [Medrol -] 4 mg PO ASDIR #12 tablet - Patient Instructions Printed Discharge Instructions: Temporal Arteritis Additional Instructions: Alternate 12 mg Medrol (3 tabs of 4 mg each) with 16 mg daily as previously directed Continue other medications as prescribed Drink plenty of fluids Return to ER if you have severe weakness/palpitations/shortness of breath Follow-up with your insole and outsole splitter as scheduled
[2017-09-19 21:36] VITALS: PULSE 75
[2017-09-19 21:37] VITALS: BP 91/61
--- NOTE | 2017-09-20 09:03 | EKG ---
Test Reason : Blood Pressure : / mmHG Vent. Rate : 094 BPM Atrial Rate : 094 BPM P-R Int : 208 ms QRS Dur : 144 ms QT Int : 400 ms P-R-T Axes : 041 -24 088 degrees QTc Int : 500 ms NORMAL SINUS RHYTHM LEFT BUNDLE BRANCH BLOCK ABNORMAL ECG WHEN COMPARED WITH ECG OF 23-AUG-2017 18:16, NO SIGNIFICANT CHANGE WAS FOUND Confirmed by DEMETRA MATHEWS MD ([id number]) on 09/20/2017 9:02:40 AM Referred By: MD [id number] Confirmed By:DEMETRA MATHEWS MD
== END 2017-09-19 22:05 | disposition home or self-care (01) ==
LOC: FER 18:39
PROC: 3E0337Z Introduction of Electrolytic and Water Balance Substance into Peripheral Vein, Percutaneous Approach (ICD-10-PCS; principal; 2017-09-19)
DX: M31.6 Other giant cell arteritis (principal)
CPT/HCPCS: 36415; 71010-TC; 80053; 82550; 84484; 85025; 93005; 99284-25

== ENCOUNTER 2017-12-24 22:43 | Emergency (ER) | payer OTHER ==
--- NOTE | 2017-12-24 22:51 | PDOC ---
History of Present Illness - General Chief Complaint: Pain, Acute Stated Complaint: SWELLING TO TONGUE/BODY ACHES Time Seen by Provider: 12/24/17 22:50 - History of Present Illness Initial Comments: 12/24/17 23:07 This 62-year-old woman with a history of CAD, CHF, connective tissue disorder( thought it what type to be temporal arteritis), HLD, multiple medication ALLERGIES presents with a few hour history of tongue swelling. Patient states that at approximately 10 PM tonight, patient had onset of mild tongue swelling. She cannot recall ingestion of any new medication/food in the last 1-2 days. She has not had any rash or pruritus. The patient self medicated with an EpiPen prior to presentation in the ER. She has been taking CBD oil and [employer] herbal medications for the last week. Patient has been prescribed enalapril since January 2016. In July 2016 she had an episode of tongue edema; because of her history of multiple medication ALLERGIES, no treatment was instituted and patient recalls that swelling subsided spontaneously. She is continued on the enalapril since then. She is unaware if her PMD knew about the episode of tongue swelling. Last dose of enalapril was at 6 PM tonight. Patient states that, although diphenhydramine is listed as a medication that she is ALLERGIC to, she cannot recall specific symptoms of the ALLERGY. She has has taken cetirizine,loratadine and other antihistamines in the past which have not caused an ALLERGIC reaction but she states have been ineffective for symptoms. She denies shortness of breath/chest pain/abdominal pain. She has not had any nausea/vomiting/diarrhea. She is complaining of bilateral ear discomfort and "fullness"for the last several days. She had been using a drops (over-the- counter) which have stopped working Patient states that she had severe side effects from prednisone course (2-1/2 months), starting in July of last year and ending in October. This was prescribed for what was thought was temporal arteritis; patient states that her doctors thought that she might not actually have had temporal arteritis. She states that joint pain worsened while she was on prednisone. Past History - Past Medical History Allergies/Adverse Reactions: Allergies Allergy/AdvReac Type Severity Reaction Status Date / Time pseudoephedrine HCl Allergy Intermediate Difficulty Verified 12/24/17 22:46 [From Sudafed] Breathing aspirin Allergy Mild Rash Verified 12/24/17 22:46 Penicillins Allergy Mild Rash Verified 12/24/17 22:46 Sulfa (Sulfonamide Allergy Mild Rash Verified 12/24/17 22:46 Antibiotics) [Sulfa(Sulfonamide Antibiotics)] acetaminophen [From Tylenol] Allergy Verified 12/24/17 22:46 codeine Allergy Verified 12/24/17 22:46 diphenhydramine HCl Allergy Verified 12/24/17 22:46 [From Benadryl] etanercept Allergy Verified 12/24/17 22:46 fludrocortisone Allergy Verified 12/24/17 22:46 gluten Allergy Verified 12/24/17 22:46 infliximab Allergy Verified 12/24/17 22:46 lactase [From Dairy Aid] Allergy Verified 12/24/17 22:46 naproxen Allergy Verified 12/24/17 22:46 NSAIDS (Non-Steroidal Allergy Verified 12/24/17 22:46 Anti-Inflamma pneumococcal vaccine Allergy Verified 12/24/17 22:46 pregabalin Allergy Verified 12/24/17 22:46 succimer Allergy Verified 12/24/17 22:46 Tetracyclines Allergy Verified 12/24/17 22:46 wheat Allergy Verified 12/24/17 22:46 Beef Containing Products AdvReac Mild Vomiting Verified 12/24/17 22:46 Home Medications: Ambulatory Orders Enalapril Maleate 5 mg PO DAILY 12/24/17 Levothyroxine [Synthroid -] 88 mcg PO DAILY 12/24/17 Metoprolol Tartrate 12.5 mg PO DAILY 12/24/17 Anemia: Yes Asthma: No Cancer: No Cardiac Disorders: Yes (CHF) COPD: (ILD) CHF: Yes GI Disorders: Yes (IBS/GLUTEN INTOL) Disorders: No HTN: Yes Hypercholesterolemia: Yes Liver Disease: No Thyroid Disease: Yes (hypothyroid.) - Surgical History Abdominal Surgery: Yes (tummy tuck/breast reduction 2004) Appendectomy: Yes - Suicide/Smoking/Psychosocial Hx Smoking Status: No Smoking History: Never smoked Have you smoked in the past 12 months: No Number of Cigarettes Smoked Daily: 0 Hx Alcohol Use: No Drug/Substance Use Hx: No Substance Use Type: None Hx Substance Use Treatment: No Review of Systems - Review of Systems Able to Perform ROS?: Yes Comments:: 12 point review of systems is negative except for what is noted in the history of present illness *Physical Exam - Physical Exam Comments: GENERAL: Adult female, alert and oriented 3, speech is clear; no acute respiratory distress HEAD: Normal with no signs of trauma. EYES: PERRLA, EOMI, sclera anicteric, conjunctiva clear. ENT: Ears normal, nares patent; lips nonedematous Tongue is mildly edematous (right greater than left side); no uvular edema; mucous membranes moist NECK: Normal range of motion, supple without lymphadenopathy, JVD, or masses. No stridor LUNGS: Breath sounds equal, clear to auscultation bilaterally. No wheezes, and no crackles. HEART:Regular rate and rhythm, normal S1 and S2 without murmur, rub or gallop. ABDOMEN:.normal bowel sounds No guarding,tenderness or rebound.No masses No distention. EXTREMITIES: Normal range of motion, no edema. No clubbing or cyanosis. No erythema, or tenderness. NEUROLOGICAL: Cranial nerves II through XII grossly intact. Normal speech. No focal neurological deficits. MUSCULOSKELETAL: Back non-tender to palpation, no CVA tenderness SKIN: Warm, Dry, normal turgor, no rashes or lesions noted. ED Treatment Course - LABORATORY CBC & Chemistry Diagram: 12/24/17 23:05 12/24/17 23:05 Medical Decision Making - Medical Decision Making 12/24/17 23:40 Solu-Medrol 125 mg IV administered. Patient reports that she feels tongue is getting more swollen; on reexamination , right side of tongue continues to appear moderately edematous without significant progression of edema. Uvula continues to be midline and nonedematous. No stridor present. She has not had any adverse effects to Claritin in the past and 10 mg given by mouth now. If the patient continues to have persistent tongue edema,administration of FFP warranted. Because patient has history CHF, this would need to be given relatively slowly. 12/25/17 00:15 Patient reports feeling significant improvement in the tongue edema. Reexamination reveals minimal right-sided tongue edema; uvula clearly visualized and is midline and nonedematous. No stridor or wheezing present. Patient has maintained pulse oximetry 99-100% throughout without any evidence of respiratory distress. The patient has already arranged follow-up with her general medical doctor at 9: 45 AM tomorrow (Dr. Sears at [facility]). She should return to the emergency room if she has any worsening of her tongue edema or experiences shortness of breath. *DC/Admit/Observation/Transfer Diagnosis at time of Disposition: Angioedema due to angiotensin converting enzyme inhibitor ([place]-I) - Discharge Dispostion Disposition: HOME Condition at time of disposition: Stable - Referrals - Patient Instructions Printed Discharge Instructions: Angioedema Additional Instructions: stop enalapril Follow-up with your doctor tomorrow morning as already scheduled Return to ER immediately if you have any worsening of tongue swelling or experience shortness of breath - Post Discharge Activity
[2017-12-24] MEDS ORDERED: methylPREDNISolone NA SUCC 125 MG/2 ML VIAL IVPB ONE (22:53)
[2017-12-24] MEDS ORDERED: methylPREDNISolone NA SUCC 125 MG/2 ML VIAL ONE (22:56)
[2017-12-24 23:05] VITALS: BP 126/81; TEMP 98.1; BMI 28.4
[2017-12-24 23:18] LABS: EOS % 0.8 % (0-4.5); HEMATOCRIT 34.8 % (32.4-45.2); HEMOGLOBIN 11.6 GM/dl (10.7-15.3); LYMPH % 39.2 % (8-40); MCH 31.9 pg (25.7-33.7); MCHC 33.5 g/dl (32.0-36.0); MEAN CELL VOLUME 95.1 fl (80-96); MEAN PLT VOLUME 8.4 fl (7.5-11.1); MONO % 16.4 % (3.8-10.2); NEUT % 42.6 % (42.8-82.8); PLATELET COUNT 251 K/MM3 (134-434); RBC 3.66 M/mm3 (3.60-5.2); RDW 11.9 % (11.6-15.6); WHITE BLOOD COUNT 4.2 K/mm3 (4.0-10.8)
[2017-12-24] MEDS ORDERED: LORATADINE 10 MG TABLET ONE (23:29)
[2017-12-24 23:32] LABS: ALBUMIN 4.2 g/dl (3.5-5.0); ALK PHOS 79 U/L (32-92); ANION GAP 7 (8-16); BILIRUBIN,TOTAL 0.3 mg/dl (0.2-1.0); BLOOD UREA NITROGEN 10 mg/dl (7-18); CALCIUM 9.7 mg/dl (8.4-10.2); CHLORIDE 101 mmol/L (98-107); CO2 27 mmol/L (22-28); CREATININE 0.6 mg/dl (0.6-1.3); GLUCOSE,RANDOM 97 mg/dl (74-106); POTASSIUM 3.7 mmol/L (3.5-5.1); SGOT/AST 24 U/L (10-42); SGPT/ALT 13 U/L (10-40); SODIUM 135 mmol/L (136-145); TOT PROT 7.7 g/dl (6.4-8.3)
[2017-12-24] MEDS ORDERED: LORATADINE 10 MG TABLET PO ONE (23:32)
[2017-12-24 23:39] VITALS: PULSE 66
== END 2017-12-25 00:17 | disposition home or self-care (01) ==
LOC: FER 22:43
PROC: 3E033GC Introduction of Other Therapeutic Substance into Peripheral Vein, Percutaneous Approach (ICD-10-PCS; principal; 2017-12-24)
DX: T78.3XXA Angioneurotic edema, initial encounter (principal); I25.10 Atherosclerotic heart disease of native coronary artery without angina pectoris; I50.9 Heart failure, unspecified; E78.5 Hyperlipidemia, unspecified; Z88.9 Allergy status to unspecified drugs, medicaments and biological substances
CPT/HCPCS: 36415; 80053; 85025; 99281-25

== ENCOUNTER 2018-06-05 14:50 | Observation (INO) | payer OTHER ==
--- NOTE | 2018-06-05 14:58 | PDOC ---
Rapid Medical Evaluation Time Seen by Provider: 06/05/18 14:54 Medical Evaluation: Allergies Allergy/AdvReac Type Severity Reaction Status Date / Time pseudoephedrine HCl Allergy Intermediate Difficulty Verified 12/24/17 22:46 [From Sudafed] Breathing aspirin Allergy Mild Rash Verified 12/24/17 22:46 Penicillins Allergy Mild Rash Verified 12/24/17 22:46 Sulfa (Sulfonamide Allergy Mild Rash Verified 12/24/17 22:46 Antibiotics) [Sulfa(Sulfonamide Antibiotics)] acetaminophen [From Tylenol] Allergy Verified 12/24/17 22:46 codeine Allergy Verified 12/24/17 22:46 diphenhydramine HCl Allergy Verified 12/24/17 22:46 [From Benadryl] etanercept Allergy Verified 12/24/17 22:46 fludrocortisone Allergy Verified 12/24/17 22:46 gluten Allergy Verified 12/24/17 22:46 infliximab Allergy Verified 12/24/17 22:46 lactase [From Dairy Aid] Allergy Verified 12/24/17 22:46 naproxen Allergy Verified 12/24/17 22:46 NSAIDS (Non-Steroidal Allergy Verified 12/24/17 22:46 Anti-Inflamma pneumococcal vaccine Allergy Verified 12/24/17 22:46 pregabalin Allergy Verified 12/24/17 22:46 succimer Allergy Verified 12/24/17 22:46 Tetracyclines Allergy Verified 12/24/17 22:46 wheat Allergy Verified 12/24/17 22:46 Beef Containing Products AdvReac Mild Vomiting Verified 12/24/17 22:46 I have performed a brief in-person evaluation of this patient. The patient presents with a chief complaint of: SOB this morning with tachycardia. hx of interstitial lung disease Pertinent physical exam findings: none I have ordered the following: ekg, labs, cxr The patient will proceed to the ED for further evaluation. 06/05/18 15:03 Discharge Disposition - Diagnosis SOB (shortness of breath) - Referrals Referrals: Blanca Smith MD [Primary Care Provider] - - Patient Instructions - Post Discharge Activity
[2018-06-05 14:59] VITALS: BMI 29.4
--- NOTE | 2018-06-05 15:34 | PDOC ---
History of Present Illness - General Chief Complaint: Shortness of Breath Stated Complaint: SOB,RAPID HEART BEAT Time Seen by Provider: 06/05/18 14:54 History Source: Patient - History of Present Illness Initial Comments: 06/05/18 15:33 Patient is a 63 year old female with a PMH Of Interstitial Lung Disease, costochondritis, Raynaud's, CHF (EF 40%), HLD, CAD, HTN, dermatomyositis, fibromyalgia and giant cell arteritis presents to our ED c/o 1 week h/o of worsening dyspnea. Initially patient noted worsening shortness of breath on exertion, however today she felt dyspneic @ rest prompting her visit to our ED. Denies any chest pain, lightheadedness, palpitations, diaphoresis. Notes cardiac evaluation in March 2018 which showed EF of 25% which improved to 40% s/p discontinuation of her prednisone. Follows w/a [facility] patient scheduling manager (Dr. Meade) and notes she had an abnormal ECG in 2015 but is uncertain if she had an NV. No reported h/o of cardiac catheterization. Denies fever, chills, cough or a headache. Denies chest pain. Denies swelling. Denies abdominal pain. Denies dysuria, hematuria, frequency or urgency to urinate. Denies nausea, vomiting, diarrhea or constipation. Allergies: aspirin, penicillins, pseudoephedrine, (see nursing note for more) Past surgical history: left temporal biopsy, reduction mammaplasty, appendectomy Social history: Pt denies toxic habits PMD: Dr. Blanca Smith; [employer] Operator: Dr. Meade As per EMR patient was evaluated in our ED in 11/2017 for angioedema 2/2 to VALENCIA- I allergy. MINI in 02/2016 shows EF 46%. 06/06/18 09:35 Past History - Past Medical History Allergies/Adverse Reactions: Allergies Allergy/AdvReac Type Severity Reaction Status Date / Time pseudoephedrine HCl Allergy Intermediate Difficulty Verified 06/05/18 16:40 [From Sudafed] Breathing aspirin Allergy Mild Rash Verified 06/05/18 16:40 Penicillins Allergy Mild Rash Verified 06/05/18 16:40 Sulfa (Sulfonamide Allergy Mild Rash Verified 06/05/18 16:40 Antibiotics) [Sulfa(Sulfonamide Antibiotics)] acetaminophen [From Tylenol] Allergy Verified 06/05/18 16:40 codeine Allergy Verified 06/05/18 16:40 diphenhydramine HCl Allergy Verified 06/05/18 16:40 [From Benadryl] etanercept Allergy Verified 06/05/18 16:40 fludrocortisone Allergy Verified 06/05/18 16:40 gluten Allergy Verified 06/05/18 16:40 infliximab Allergy Verified 06/05/18 16:40 lactase [From Dairy Aid] Allergy Verified 06/05/18 16:40 naproxen Allergy Verified 06/05/18 16:40 NSAIDS (Non-Steroidal Allergy Verified 06/05/18 16:40 Anti-Inflamma pneumococcal vaccine Allergy Verified 06/05/18 16:40 pregabalin Allergy Verified 06/05/18 16:40 succimer Allergy Verified 06/05/18 16:40 Tetracyclines Allergy Verified 06/05/18 16:40 wheat Allergy Verified 06/05/18 16:40 Beef Containing Products AdvReac Mild Vomiting Verified 06/05/18 16:40 Home Medications: Ambulatory Orders Levothyroxine [Synthroid -] 88 mcg PO DAILY 12/24/17 Metoprolol Tartrate 12.5 mg PO DAILY 12/24/17 Hydroxychloroquine Sulfate [Plaquenil] 400 mg PO DAILY 06/05/18 Anemia: Yes Asthma: No Cancer: No Cardiac Disorders: Yes (CHF) COPD: No (ILD) CHF: Yes DVT: No GI Disorders: Yes (IBS/GLUTEN INTOL) Disorders: No HTN: Yes Hypercholesterolemia: Yes Liver Disease: No Thyroid Disease: Yes (hypothyroid.) Other medical history: interstitial lung disease - Surgical History Abdominal Surgery: Yes (tummy tuck/breast reduction 2004) Appendectomy: Yes - Suicide/Smoking/Psychosocial Hx Smoking Status: No Smoking History: Never smoked Have you smoked in the past 12 months: No Number of Cigarettes Smoked Daily: 0 Hx Alcohol Use: No Drug/Substance Use Hx: No Substance Use Type: None Hx Substance Use Treatment: No Review of Systems - Review of Systems Constitutional: No: Chills, Fever HEENTM: No: Blurred Vision, Double Vision Respiratory: Yes: Shortness of Breath. No: Cough, Stridor, Wheezing, Productive cough, Hemoptysis Cardiac (ROS): No: Chest Pain, Edema, Lightheadedness, Palpitations, Syncope ABD/GI: No: Constipated, Diarrhea, Nausea, Vomiting : No: Burning, Dysuria *Physical Exam - Vital Signs Last Vital Signs Temp Pulse Resp BP Pulse Ox 98.3 F 83 20 101/69 97 06/05/18 14:56 06/05/18 14:56 06/05/18 14:56 06/05/18 14:56 06/05/18 14:56 - Physical Exam General Appearance: Yes: Nourished, Appropriately Dressed Neck: positive: Trachea midline, Supple Respiratory/Chest: positive: Lungs Clear, Normal Breath Sounds Cardiovascular: positive: S1, S2. negative: Edema, JVD, Murmur Gastrointestinal/Abdominal: positive: Soft. negative: Tender, Guarding, Rebound , Hernia, Mass Musculoskeletal: negative: CVA Tenderness (R), CVA Tenderness (L) ED Treatment Course - LABORATORY CBC & Chemistry Diagram: 06/05/18 16:00 06/05/18 16:00 Medical Decision Making - Medical Decision Making 06/05/18 15:42 63 year old female with a h/o auto-immune disease and CHF (EF 40%) presents with worsening dyspnea. VS unremarkable. SpO2 98% on RA, however patient uncomfortable - labored breathing w/o accessory muscle use. Frontal diagnosis: CHF exacerbation, pulmonary-cardiac manifestation of previously undiagnosed AI disease including Lupus nephritis, PNA, NV, PE. PE on differential however less likely as patient has no recent immobilization, no LE swelling and is non- hypoxic, non-tachycardic @ presentation. Will obtain CTA, basic labs, BNP, Troponin, CXR. Reasess. 06/05/18 16:51 BNP 279, (as per EMR, previous BNP 563 in 07/2018). CTA pending. Patient and patient's @ bedside counseled on POC. Amenable to admission for further work-up. CBC, CMP unremarkable. Troponin pending. 06/05/18 16:56 Case d/w Dr. Costa - admitted to obs tele. Will likely require further cardiac evaluation including MINI. Uncertain h/o prior stress testing. 06/05/18 17:29 ECG shows HR 79, 1st degree AV block, no KELLIE/STD, TWI - non-ischemic ECG. C/w previous ECG. Troponin (-) x1. Patient resting comfortably. *DC/Admit/Observation/Transfer Diagnosis at time of Disposition: SOB (shortness of breath) - Discharge Dispostion Disposition: AGAINST MEDICAL ADVICE Condition at time of disposition: Stable - Referrals - Patient Instructions - Post Discharge Activity
--- NOTE | 2018-06-05 15:39 | PDOC ---
Attending Attestation - HPI HPI: 06/05/18 18:55 The patient is a 63 year old female with past medical history of CAD, CHF, connective tissue disorder, OA, IBS (.91), dermatomyositis (2000, not active) and fibromyalgia presents to the emergency department with shortness of breath. Patient reports states shes been experiencing intermittent SOB for the past several days, which worsened today. Patient recalls getting an echo done in March or April which showed an ejection fraction of 40. Patient states initially it was 25 which increased s/p treatment to 45 followed by a decrease after the use of prednisone. Patient states now the number is back up. Patient reports a possible UT in January of 2016, states she had an EKG done, which was abnormal. Denies fever, chills, cough or a headache. Denies chest pain. Denies swelling. Denies abdominal pain. Denies dysuria, hematuria, frequency or urgency to urinate. Denies nausea, vomiting, diarrhea or constipation. Allergies: See chart! Social history: None reported Surgical history: tummy tuck/breast reduction 2004 and Appendectomy PCP: Blanca Smith MD Licensed Plumber: Dr. Meade. - Physicial Exam PE: 06/05/18 18:56 GENERAL: (+) Looks dyspneic. The patient is in no acute distress. HEAD: Normal with no signs of trauma. EYES: PERRLA, EOMI, sclera anicteric, conjunctiva clear. ENT: Ears normal, nares patent, oropharynx clear without exudates. Moist mucous membranes. NECK: Normal range of motion, supple without lymphadenopathy, JVD, or masses. LUNGS: Breath sounds equal, clear to auscultation bilaterally. No wheezes, and no crackles. HEART:Regular rate and rhythm, normal S1 and S2 without murmur, rub or gallop. ABDOMEN: Soft, nontender, normoactive bowel sounds. No guarding, no rebound. No masses palpable. EXTREMITIES: No lower extremity edema. Normal range of motion, no edema. No clubbing or cyanosis. No erythema, or tenderness. NEUROLOGICAL: Cranial nerves II through XII grossly intact. Normal speech. No focal neurological deficits. MUSCULOSKELETAL: Back non-tender to palpation, no CVA tenderness SKIN: Warm, Dry, normal turgor, no rashes or lesions noted. - Medical Decision Making 06/05/18 18:57 Documentation prepared by Sonya Hirsch, acting as medical scientist for Reva Boykin MD. <Sonya Hirsch - Last Filed: 06/05/18 18:55> - Resident Resident Name: Lexie Ghosh - ED Attending Attestation I have performed the following: I have examined & evaluated the patient, The case was reviewed & discussed with the resident, I agree w/resident's findings & plan, Exceptions are as noted - HPI HPI: - Medical Decision Making 06/05/18 06/05/18 06/05/18 16:00 16:00 16:15 WBC 3.6 L Hgb 11.4 Hct 34.3 Plt Count 252 Creatine Kinase 102 Troponin I < 0.02 C-Reactive Protein < 0.3 B-Natriuretic Peptide 279.62 H Pt admitted to Dr Costa <Reva Boykin - Last Filed: 06/07/18 20:12>
[2018-06-05 16:14] LABS: BASO % 0.9 % (0-2.0); EOS % 1.4 % (0-4.5); HEMATOCRIT 34.3 % (32.4-45.2); HEMOGLOBIN 11.4 GM/dL (10.7-15.3); LYMPH % 37.4 % (8-40); MCH 31.2 pg (25.7-33.7); MCHC 33.4 g/dl (32.0-36.0); MEAN CELL VOLUME 93.4 fl (80-96); MEAN PLT VOLUME 7.8 fl (7.5-11.1); MONO % 12.7 % (3.8-10.2); NEUT % 47.6 % (42.8-82.8); PLATELET COUNT 252 K/MM3 (134-434); RBC 3.67 M/mm3 (3.60-5.2); RDW 13.5 % (11.6-15.6); WHITE BLOOD COUNT 3.6 K/mm3 (4.0-10.0)
[2018-06-05 16:37] LABS: ALBUMIN 3.8 g/dl (3.4-5.0); ANION GAP 7 (8-16); BILIRUBIN,TOTAL 0.2 mg/dL (0.2-1.0); BLOOD UREA NITROGEN 12 mg/dL (7-18); CHLORIDE 106 mmol/L (98-107); CO2 28 mmol/L (21-32); CREATININE 0.8 mg/dL (0.55-1.02); GLUCOSE,RANDOM 100 mg/dL (74-106); POTASSIUM 3.9 mmol/L (3.5-5.1); SGOT/AST 24 U/L (15-37); SGPT/ALT 26 U/L (12-78); SODIUM 141 mmol/L (136-145); TOT PROT 7.9 g/dl (6.4-8.2)
[2018-06-05 16:39] LABS: ALK PHOS 79 U/L (45-117); N-TERMINAL BNP 279.62 pg/ml (5-125)
--- NOTE | 2018-06-05 21:13 | HP ---
Admitting History and Physical - Primary Care Physician PCP: Diane Costa - Admission Chief Complaint: sob History of Present Illness: The patient is a 63 year old female with past medical history of CAD, CHF, connective tissue disorder, OA, IBS (.91), dermatomyositis (2000, not active) and fibromyalgia presents to the emergency department with shortness of breath. Patient reports states shes been experiencing intermittent SOB for the past several days, which worsened today. Patient recalls getting an echo done in March or April which showed an ejection fraction of 40. Patient states initially it was 25 which increased s/p treatment to 45 followed by a decrease after the use of prednisone. Patient states now the number is back up. Patient reports a possible OR in January of 2016, states she had an EKG done, which was abnormal. Denies fever, chills, cough or a headache. Denies chest pain. Denies swelling. Denies abdominal pain. Denies dysuria, hematuria, frequency or urgency to urinate. Denies nausea, vomiting, diarrhea or constipation. - Past Medical History Cardiovascular: Yes: CAD, CHF - Smoking History Smoking history: Never smoked Have you smoked in the past 12 months: No Aproximately how many cigarettes per day: 0 - Alcohol/Substance Use Hx Alcohol Use: No Home Medications - Allergies Allergies/Adverse Reactions: Allergies Allergy/AdvReac Type Severity Reaction Status Date / Time pseudoephedrine HCl Allergy Intermediate Difficulty Verified 06/05/18 16:40 [From Sudafed] Breathing aspirin Allergy Mild Rash Verified 06/05/18 16:40 Penicillins Allergy Mild Rash Verified 06/05/18 16:40 Sulfa (Sulfonamide Allergy Mild Rash Verified 06/05/18 16:40 Antibiotics) [Sulfa(Sulfonamide Antibiotics)] acetaminophen [From Tylenol] Allergy Verified 06/05/18 16:40 codeine Allergy Verified 06/05/18 16:40 diphenhydramine HCl Allergy Verified 06/05/18 16:40 [From Benadryl] etanercept Allergy Verified 06/05/18 16:40 fludrocortisone Allergy Verified 06/05/18 16:40 gluten Allergy Verified 06/05/18 16:40 infliximab Allergy Verified 06/05/18 16:40 lactase [From Dairy Aid] Allergy Verified 06/05/18 16:40 naproxen Allergy Verified 06/05/18 16:40 NSAIDS (Non-Steroidal Allergy Verified 06/05/18 16:40 Anti-Inflamma pneumococcal vaccine Allergy Verified 06/05/18 16:40 pregabalin Allergy Verified 06/05/18 16:40 succimer Allergy Verified 06/05/18 16:40 Tetracyclines Allergy Verified 06/05/18 16:40 wheat Allergy Verified 06/05/18 16:40 Beef Containing Products AdvReac Mild Vomiting Verified 06/05/18 16:40 - Home Medications Home Medications: Ambulatory Orders Levothyroxine [Synthroid -] 88 mcg PO DAILY 12/24/17 Metoprolol Tartrate 12.5 mg PO DAILY 12/24/17 Hydroxychloroquine Sulfate [Plaquenil] 400 mg PO DAILY 06/05/18 Physical Examination Vital Signs: Vital Signs Temperature 98.4 F 06/05/18 17:19 Pulse Rate 72 06/05/18 17:19 Respiratory Rate 17 06/05/18 17:19 Blood Pressure 94/64 06/05/18 17:19 O2 Sat by Pulse Oximetry (%) 100 06/05/18 17:19 Constitutional: Yes: No Distress HENT: Yes: Atraumatic Neck: Yes: Supple Cardiovascular: Yes: Regular Rate and Rhythm Respiratory: Yes: Rales (mild at the bases) Gastrointestinal: Yes: Normal Bowel Sounds Extremities: Yes: WNL Neurological: Yes: Alert, Oriented Labs: CBC, BMP 06/05/18 16:00 06/05/18 16:00 Problem List - Problems (1) CHF (congestive heart failure) Assessment/Plan: echo in am bp low so wont give lasix Code(s): I50.9 - HEART FAILURE, UNSPECIFIED (2) SOB (shortness of breath) Assessment/Plan: duo neb prn Code(s): R06.02 - SHORTNESS OF BREATH Assessment/Plan Laboratory Tests 06/05/18 06/05/18 06/05/18 16:00 16:00 16:15 WBC 3.6 L RBC 3.67 Hgb 11.4 Hct 34.3 MCV 93.4 MCH 31.2 MCHC 33.4 RDW 13.5 Plt Count 252 MPV 7.8 Absolute Neuts (auto) 1.7 Neutrophils % 47.6 D Lymphocytes % 37.4 Monocytes % 12.7 H Eosinophils % 1.4 Basophils % 0.9 Nucleated RBC % 0 ESR Sodium 141 Potassium 3.9 Chloride 106 Carbon Dioxide 28 Anion Gap 7 L BUN 12 Creatinine 0.8 Creat Clearance w eGFR > 60 Random Glucose 100 Calcium 9.0 Total Bilirubin 0.2 AST 24 ALT 26 Alkaline Phosphatase 79 Creatine Kinase 102 Troponin I < 0.02 C-Reactive Protein < 0.3 B-Natriuretic Peptide 279.62 H Total Protein 7.9 Albumin 3.8 06/05/18 16:20 WBC RBC Hgb Hct MCV MCH MCHC RDW Plt Count MPV Absolute Neuts (auto) Neutrophils % Lymphocytes % Monocytes % Eosinophils % Basophils % Nucleated RBC % ESR 25 Sodium Potassium Chloride Carbon Dioxide Anion Gap BUN Creatinine Creat Clearance w eGFR Random Glucose Calcium Total Bilirubin AST ALT Alkaline Phosphatase Creatine Kinase Troponin I C-Reactive Protein B-Natriuretic Peptide Total Protein Albumin
[2018-06-05] MEDS ORDERED: HEPARIN NA (PORCINE) 5,000 UNITS/ML 1ML VIAL SQ SCH (22:00)
[2018-06-05] MEDS ORDERED: ALBUTEROL SO4 2.5/IPRATROPIUM 0.5 INH SOL 3 ML VIAL.NEB. NEB PRN (22:52)
[2018-06-06 00:57] VITALS: BP 110/70; PULSE 89; TEMP 98.6
[2018-06-06] MEDS ORDERED: LEVOTHYROXINE NA 88 MCG TABLET (FP) PO SCH (07:00)
[2018-06-06] MEDS ORDERED: METOPROLOL TARTRATE 25 MG TABLET (FP) PO SCH (10:00)
[2018-06-06] MEDS ORDERED: HYDROXYCHLOROQUINE SO4 200 MG TABLET (FP) PO SCH (10:00)
--- NOTE | 2018-06-06 12:03 | EKG ---
Test Reason : Blood Pressure : / mmHG Vent. Rate : 079 BPM Atrial Rate : 079 BPM P-R Int : 230 ms QRS Dur : 164 ms QT Int : 444 ms P-R-T Axes : 047 -44 106 degrees QTc Int : 509 ms SINUS RHYTHM WITH 1ST DEGREE A-V BLOCK LEFT AXIS DEVIATION LEFT BUNDLE BRANCH BLOCK ABNORMAL ECG WHEN COMPARED WITH ECG OF 19-SEP-2017 19:02, NO SIGNIFICANT CHANGE WAS FOUND Confirmed by ARDEN DENNEY, ANEUDY ([id number]) on 06/06/2018 12:03:32 PM Referred By: Confirmed By:ANEUDY HER MD
--- NOTE | 2018-06-06 18:57 | DS ---
Physical Examination Vital Signs: Vital Signs Temperature 98.6 F 06/05/18 23:57 Pulse Rate 89 06/05/18 23:57 Respiratory Rate 19 06/05/18 23:57 Blood Pressure 110/70 06/05/18 23:57 O2 Sat by Pulse Oximetry (%) 100 06/05/18 17:19 Labs: CBC, BMP 06/05/18 16:00 06/05/18 16:00 Discharge Summary Reason For Visit: DYSPNEA Condition: Stable - Instructions Referrals: Blanca Smith MD [Primary Care Provider] - Disposition: AGAINST MEDICAL ADVICE - Home Medications Comprehensive Discharge Medication List: Ambulatory Orders Levothyroxine [Synthroid -] 88 mcg PO DAILY 12/24/17 Metoprolol Tartrate 12.5 mg PO DAILY 12/24/17 Hydroxychloroquine Sulfate [Plaquenil] 400 mg PO DAILY 06/05/18 AMA
== END 2018-06-06 | disposition left against medical advice (07) ==
LOC: JER 14:50 → JERBED 17:33
PROVIDERS: ADMIT Internal Medicine; ATTEND Internal Medicine
DX: R06.02 Shortness of breath (principal); I10 Essential (primary) hypertension; E78.5 Hyperlipidemia, unspecified; I25.10 Atherosclerotic heart disease of native coronary artery without angina pectoris; I50.9 Heart failure, unspecified; D64.9 Anemia, unspecified; K58.9 Irritable bowel syndrome, unspecified; E03.9 Hypothyroidism, unspecified; J84.9 Interstitial pulmonary disease, unspecified; Z88.0 Allergy status to penicillin; Z88.2 Allergy status to sulfonamides; Z88.8 Allergy status to other drugs, medicaments and biological substances; Z91.018 Allergy to other foods
CPT/HCPCS: 36415; 71046-TC-FY; 71275-TC; 80053; 82550; 83880; 84484; 85025; 85651; 86140; 93005; 93010; 99284-25; G0378

== ENCOUNTER 2018-06-13 08:02 | Observation (INO) | payer OTHER ==
--- NOTE | 2018-06-13 08:37 | PDOC ---
History of Present Illness - General Chief Complaint: Chest Pain Stated Complaint: SOB,CHEST PAIN Time Seen by Provider: 06/13/18 08:03 History Source: Patient Exam Limitations: No Limitations - History of Present Illness Initial Comments: 06/13/18 08:37 Ms Charles is a 63y F hx of CAD, CHF, interstitial lung disease, connective tissue disorder, OA, IBS (.91), dermatomyositis (2000, not active) and fibromyalgia presents with chest pain/sob. Pt was seen in the ED last week, and has been persisteently but is intermittent. Pt notes there is some triggers forher sob in the past, (dust, perfume) but no triggers recently. Pt notes her sob has been waxing and waning the past few days - better on sunday, worse on sunday. Last night, the pts sob got worse sana slo endorsed some chest pain pt notes it is sharp in nature associated with a cough, 7/10, in the mid chest and radiates to the R breast. Wose with inspiration. Pt used her albuterol without signiciant relief at home. pt denies any fever/chills, hemoptysis, productive cough, diaphoresis, n/v, leg swelling, orthopnea, diarrhea, dysuria, bpr, melena. Pts PMD is dr. Smith, Cards: Dr. Rodgers ([facility]) denies any drug use, smoking, no recent surgeries, travel, immoilization Past History - Past Medical History Allergies/Adverse Reactions: Allergies Allergy/AdvReac Type Severity Reaction Status Date / Time pseudoephedrine HCl Allergy Intermediate Difficulty Verified 06/13/18 08:15 [From Sudafed] Breathing aspirin Allergy Mild Rash Verified 06/13/18 08:15 Penicillins Allergy Mild Rash Verified 06/13/18 08:15 Sulfa (Sulfonamide Allergy Mild Rash Verified 06/13/18 08:15 Antibiotics) [Sulfa(Sulfonamide Antibiotics)] acetaminophen [From Tylenol] Allergy Verified 06/13/18 08:15 codeine Allergy Verified 06/13/18 08:15 diphenhydramine HCl Allergy Verified 06/13/18 08:15 [From Benadryl] etanercept Allergy Verified 06/13/18 08:15 fludrocortisone Allergy Verified 06/13/18 08:15 gluten Allergy Verified 06/13/18 08:15 infliximab Allergy Verified 06/13/18 08:15 lactase [From Dairy Aid] Allergy Verified 06/13/18 08:15 naproxen Allergy Verified 06/13/18 08:15 NSAIDS (Non-Steroidal Allergy Verified 06/13/18 08:15 Anti-Inflamma pneumococcal vaccine Allergy Verified 06/13/18 08:15 pregabalin Allergy Verified 06/13/18 08:15 succimer Allergy Verified 06/13/18 08:15 Tetracyclines Allergy Verified 06/13/18 08:15 wheat Allergy Verified 06/13/18 08:15 Beef Containing Products AdvReac Mild Vomiting Verified 06/13/18 08:15 Home Medications: Ambulatory Orders Levothyroxine [Synthroid -] 88 mcg PO DAILY 12/24/17 Metoprolol Tartrate 12.5 mg PO DAILY 12/24/17 Hydroxychloroquine Sulfate [Plaquenil] 400 mg PO DAILY 06/05/18 Albuterol 0.083% Nebulizer Inga [Ventolin 0.083%] 1 neb NEB BID 06/13/18 Albuterol Sulfate Inhaler - [Ventolin Hfa Inhaler -] 1 - 2 inh PO BID 06/13/18 Anemia: Yes Asthma: No Cancer: No Cardiac Disorders: Yes (CHF) COPD: No (ILD) CHF: Yes DVT: No GI Disorders: Yes (IBS/GLUTEN INTOL) Disorders: No HTN: Yes Hypercholesterolemia: Yes Liver Disease: No Thyroid Disease: Yes (hypothyroid.) - Surgical History Abdominal Surgery: Yes (tummy tuck/breast reduction 2004) Appendectomy: Yes - Suicide/Smoking/Psychosocial Hx Smoking Status: No Smoking History: Never smoked Have you smoked in the past 12 months: No Number of Cigarettes Smoked Daily: 0 Hx Alcohol Use: No Drug/Substance Use Hx: No Substance Use Type: None Hx Substance Use Treatment: No Review of Systems - Review of Systems Able to Perform ROS?: Yes Comments:: 06/13/18 09:25 Constitutional - no reported Fever, Chills, HEENT: no reported vision changes, sore throat Respiratory: +cough, sob, no reported hemoptysis Cardiac: +chest pain, no reported palpitations, light headedness, leg swelling Abd/GI: no reported abd pain, nausea, vomiting, blood per rectum, melena, diarrhea : no reported dysuria, frequency, discharge Musculskelatal - no reported back pain, joint swelling skin - no reported bruising, erythema, rash neurological: no reported headache, numbness, focal weakness, tingling, ataxia, hematologic: no reported easy bruising, easy bleeding *Physical Exam - Physical Exam Comments: 06/13/18 09:25 GENERAL: The patient is awake, alert, and fully oriented, Nontoxic - in no acute distress. HEAD: Normocephalic, atraumatic. EYES: extraocular movements intact, sclera anicteric, conjunctiva clear. ENT: Normal voice, Moist mucous membranes. NECK: Normal range of motion, supple LUNGS: Breath sounds equal, clear to auscultation bilaterally. No wheezes, no rhonchi, no rales. HEART: Regular rate and rhythm, normal S1 and S2 without murmur, rub or gallop. ABDOMEN: Soft, nontender, normoactive bowel sounds. No guarding, no rebound. . No CVA tenderness EXTREMITIES: Normal range of motion, no edema. No clubbing or cyanosis. No cords, erythema, or tenderness, neg homans sign NEUROLOGICAL: No facial assymetry, Normal speech, PSYCH: Normal mood, normal affect. SKIN: Warm, Dry, normal turgor, Heart Score/ECG Review - ECG Impressions Comment:: 06/13/18 09:26 Twelve-lead EKG was performed and reviewed by me. There is normal sinus rhythm with a normal rate with PVCs Rate of 63 Left axis deviation Nonspecific intraventricular block When compared with prior EKG there are occasional PVCs ED Treatment Course - LABORATORY CBC & Chemistry Diagram: 06/13/18 09:08 06/13/18 09:08 - RADIOLOGY Radiology Studies Ordered: Category Date Time Status CHEST PA & LAT [RAD] Stat Radiology 06/13/18 08:30 Ordered Medical Decision Making - Medical Decision Making 06/13/18 09:28 Differential for the patient's symptoms include her initial lung disease, acute coronary syndrome, viral illness, pneumonia Will obtain blood work including CBC, CMP, troponin, VBG chest x-ray Will give the patient a DuoNeb Will reassess 06/13/18 10:25 pts labs reivewed cxr negative ekg unchanged from prior pt notes her sob feeling a bit improved pt notes she had an echo in march 2018 - will discuss with her souvenir assembler regarding recommendations (Jaret Quintanilla, ) 06/13/18 11:[address] olivera - notes the pt has hx of nonischemic cardiomyopathy, last echo in february 2018 with ef of 45%, last cath was in 2015 with nonobstructive disease. he was told the pt was tachy to 170s during testing at a neurolgist office and was sent to he ED for evaluation. in light of normal labs, consider observation for arrythmia monitronig as it may be the source of her symptoms - and he can fu with her at discharge 06/13/18 12:[address] Costa agree with tele obs stable for obs Case discussed in detail with admitting physician including history, physical exam and ancillary studies. Admitting physician has assumed care for the patient, will follow all pending diagnostics and will complete the evaluation and treatment. *DC/Admit/Observation/Transfer Diagnosis at time of Disposition: SOB (shortness of breath) Chest pain Qualifiers: Chest pain type: unspecified Qualified Code(s): R07.9 - Chest pain, unspecified - Discharge Dispostion Condition at time of disposition: Guarded Decision to Admit order: Yes - Referrals - Patient Instructions - Post Discharge Activity
[2018-06-13] MEDS ORDERED: ALBUTEROL SO4 2.5/IPRATROPIUM 0.5 INH SOL 3 ML VIAL.NEB. NEB ONE ×4 (09:24→11:36)
[2018-06-13 09:33] LABS: HEMOGLOBIN 10.9 GM/dl (10.7-15.3); MEAN CELL VOLUME 92.8 fl (80-96)
[2018-06-13 09:46] LABS: BASO % 0.5 % (0-2.0); EOS % 0.9 % (0-4.5); HEMATOCRIT 32.8 % (32.4-45.2); LYMPH % 35.5 % (8-40); MCH 30.9 pg (25.7-33.7); MCHC 33.3 g/dl (32.0-36.0); MEAN PLT VOLUME 8.1 fl (7.5-11.1); MONO % 14.9 % (3.8-10.2); NEUT % 48.2 % (42.8-82.8); PLATELET COUNT 243 K/MM3 (134-434); RBC 3.54 M/mm3 (3.60-5.2); RDW 12.8 % (11.6-15.6); WHITE BLOOD COUNT 3.3 K/mm3 (4.0-10.8)
[2018-06-13 09:53] LABS: ALBUMIN 3.8 g/dl (3.5-5.0); ALK PHOS 56 U/L (32-92); ANION GAP 5 (8-16); BILIRUBIN,TOTAL 0.4 mg/dl (0.2-1.0); BLOOD UREA NITROGEN 12 mg/dl (7-18); CALCIUM 9.4 mg/dl (8.4-10.2); CHLORIDE 104 mmol/L (98-107); CO2 26 mmol/L (22-28); CREATININE 0.7 mg/dl (0.6-1.3); GLUCOSE,RANDOM 75 mg/dl (74-106); SGOT/AST 27 U/L (10-42); SGPT/ALT 21 U/L (10-40); SODIUM 135 mmol/L (136-145); TOT PROT 7.2 g/dl (6.4-8.3)
[2018-06-13 09:58] LABS: INR 0.96 (0.82-1.09); PROTHROMBIN TIME (PATIENT) 10.8 SEC (10.2-13.0)
[2018-06-13 11:43] LABS: VENOUS PC02 47.3 mmHg (38-52); VENOUS PH 7.38 (7.32-7.42); VENOUS PO2 29.8 mmHg (28-48)
[2018-06-13 11:55] LABS: N-TERMINAL BNP 373.74 pg/ml (5-125)
--- NOTE | 2018-06-13 14:05 | HP ---
Admitting History and Physical - Primary Care Physician PCP: Diane Costa - Admission Chief Complaint: chest pain History of Present Illness: Ms Charles is a 63y F hx of CAD, CHF, interstitial lung disease, connective tissue disorder, OA, IBS (.91), dermatomyositis (2000, not active) and fibromyalgia presents with chest pain/sob. Pt was seen in the ED last week, and has been persisteently but is intermittent. Pt notes there is some triggers forher sob in the past, (dust, perfume) but no triggers recently. Pt notes her sob has been waxing and waning the past few days - better on sunday, worse on sunday. Last night, the pts sob got worse sana slo endorsed some chest pain pt notes it is sharp in nature associated with a cough, 7/10, in the mid chest and radiates to the R breast. Wose with inspiration. Pt used her albuterol without signiciant relief at home. pt denies any fever/chills, hemoptysis, productive cough, diaphoresis, n/v, leg swelling, orthopnea, diarrhea, dysuria, bpr, melena. Pts PMD is dr. Smith, Cards: Dr. Rodgers ([facility]) - Past Medical History Cardiovascular: Yes: CAD, CHF - Smoking History Smoking history: Never smoked Have you smoked in the past 12 months: No Aproximately how many cigarettes per day: 0 - Alcohol/Substance Use Hx Alcohol Use: No Home Medications - Allergies Allergies/Adverse Reactions: Allergies Allergy/AdvReac Type Severity Reaction Status Date / Time pseudoephedrine HCl Allergy Intermediate Difficulty Verified 06/13/18 08:15 [From Sudafed] Breathing aspirin Allergy Mild Rash Verified 06/13/18 08:15 Penicillins Allergy Mild Rash Verified 06/13/18 08:15 Sulfa (Sulfonamide Allergy Mild Rash Verified 06/13/18 08:15 Antibiotics) [Sulfa(Sulfonamide Antibiotics)] acetaminophen [From Tylenol] Allergy Verified 06/13/18 08:15 codeine Allergy Verified 06/13/18 08:15 diphenhydramine HCl Allergy Verified 06/13/18 08:15 [From Benadryl] etanercept Allergy Verified 06/13/18 08:15 fludrocortisone Allergy Verified 06/13/18 08:15 gluten Allergy Verified 06/13/18 08:15 infliximab Allergy Verified 06/13/18 08:15 lactase [From Dairy Aid] Allergy Verified 06/13/18 08:15 naproxen Allergy Verified 06/13/18 08:15 NSAIDS (Non-Steroidal Allergy Verified 06/13/18 08:15 Anti-Inflamma pneumococcal vaccine Allergy Verified 06/13/18 08:15 pregabalin Allergy Verified 06/13/18 08:15 succimer Allergy Verified 06/13/18 08:15 Tetracyclines Allergy Verified 06/13/18 08:15 wheat Allergy Verified 06/13/18 08:15 Beef Containing Products AdvReac Mild Vomiting Verified 06/13/18 08:15 - Home Medications Home Medications: Ambulatory Orders Levothyroxine [Synthroid -] 88 mcg PO DAILY 12/24/17 Metoprolol Tartrate 12.5 mg PO DAILY 12/24/17 Hydroxychloroquine Sulfate [Plaquenil] 400 mg PO DAILY 06/05/18 Albuterol 0.083% Nebulizer Inga [Ventolin 0.083%] 1 neb NEB BID 06/13/18 Albuterol Sulfate Inhaler - [Ventolin Hfa Inhaler -] 1 - 2 inh PO BID 06/13/18 Review of Systems - Review of Systems Cardiovascular: reports: Chest Pain Physical Examination Vital Signs: Vital Signs Temperature 98.9 F 06/13/18 08:02 Pulse Rate 88 06/13/18 10:39 Respiratory Rate 17 06/13/18 09:15 Blood Pressure 93/59 06/13/18 10:39 O2 Sat by Pulse Oximetry (%) 98 06/13/18 10:39 Constitutional: Yes: No Distress HENT: Yes: Atraumatic Neck: Yes: Supple Cardiovascular: Yes: Regular Rate and Rhythm Respiratory: Yes: CTA Bilaterally Gastrointestinal: Yes: Normal Bowel Sounds Extremities: Yes: WNL Edema: No Peripheral Pulses WNL: Yes Neurological: Yes: Alert, Oriented Labs: CBC, BMP 06/13/18 09:08 06/13/18 09:08 Problem List - Problems (1) Chest pain Assessment/Plan: tele monitoring fu cardiac enzymes continue home meds cardiology consult Code(s): R07.9 - CHEST PAIN, UNSPECIFIED Qualifiers: Chest pain type: unspecified Qualified Code(s): R07.9 - Chest pain, unspecified (2) CHF (congestive heart failure) Assessment/Plan: stable Code(s): I50.9 - HEART FAILURE, UNSPECIFIED Assessment/Plan Laboratory Tests 06/13/18 06/13/18 06/13/18 09:08 09:08 09:08 WBC 3.3 L RBC 3.54 L Hgb 10.9 Hct 32.8 MCV 92.8 MCH 30.9 MCHC 33.3 RDW 12.8 Plt Count 243 MPV 8.1 Absolute Neuts (auto) 1.5 Neutrophils % 48.2 Lymphocytes % 35.5 Monocytes % 14.9 H Eosinophils % 0.9 Basophils % 0.5 PT with INR 10.8 INR 0.96 L VBG pH POC VBG pCO2 POC VBG pO2 Mixed VBG HCO3 Sodium 135 L Potassium 4.0 Chloride 104 Carbon Dioxide 26 Anion Gap 5 L BUN 12 Creatinine 0.7 Creat Clearance w eGFR > 60 Random Glucose 75 D Calcium 9.4 Total Bilirubin 0.4 AST 27 ALT 21 D Alkaline Phosphatase 56 Creatine Kinase Troponin I B-Natriuretic Peptide Total Protein 7.2 Albumin 3.8 06/13/18 06/13/18 06/13/18 09:08 09:08 09:08 WBC RBC Hgb Hct MCV MCH MCHC RDW Plt Count MPV Absolute Neuts (auto) Neutrophils % Lymphocytes % Monocytes % Eosinophils % Basophils % PT with INR INR VBG pH 7.38 POC VBG pCO2 47.3 POC VBG pO2 29.8 Mixed VBG HCO3 27.2 H Sodium Potassium Chloride Carbon Dioxide Anion Gap BUN Creatinine Creat Clearance w eGFR Random Glucose Calcium Total Bilirubin AST ALT Alkaline Phosphatase Creatine Kinase 95 Troponin I < 0.03 B-Natriuretic Peptide 373.74 H Total Protein Albumin
--- NOTE | 2018-06-13 14:25 | EKG ---
Test Reason : Blood Pressure : / mmHG Vent. Rate : 063 BPM Atrial Rate : 063 BPM P-R Int : 196 ms QRS Dur : 150 ms QT Int : 462 ms P-R-T Axes : 096 -54 111 degrees QTc Int : 472 ms SINUS RHYTHM WITH OCCASIONAL PREMATURE VENTRICULAR COMPLEXES LEFT BUNDLE BRANCH BLOCK ABNORMAL ECG Confirmed by ANEUDY HER MD ([id number]) on 06/13/2018 2:25:00 PM Referred By: DL Confirmed By:ANEUDY HER MD
--- NOTE | 2018-06-13 14:51 | CON.CARD ---
Consult Consult Specialty:: Cardiology Referred by:: Julissa Reason for Consultation:: chest pain - History of Present Illness Chief Complaint: chest pain History of Present Illness: 63F h/o CAD, CHF, interstitial lung disease, connective tissue disorder, fibromyalgia with chest pain, dyspnea. presents with chest pain/sob. Was seen in ED for same last week, left AMA after she had testing for autonomic neuropathy with neurologist that could not be completed due to HR in 170s on 10/13. She has had persistent dyspnea since then, also had sharp chest pain starting last night in the mid chest radiating to right breast worse with inspiration and lying on her right side. Pain has been constant. Sees [employer] Dr. Jaret Sanders at [place], last echo reportedly 02/2018 EF 45% and cath 02/16/16 with normal coronaries. initial trop negative, EKG stable from prior. - Past Medical History Cardio/Vascular: Yes: CAD, CHF - Alcohol/Substance Use Hx Alcohol Use: No - Smoking History Smoking history: Never smoked Have you smoked in the past 12 months: No Aproximately how many cigarettes per day: 0 Home Medications - Allergies Allergies/Adverse Reactions: Allergies Allergy/AdvReac Type Severity Reaction Status Date / Time pseudoephedrine HCl Allergy Intermediate Difficulty Verified 06/13/18 08:15 [From Sudafed] Breathing aspirin Allergy Mild Rash Verified 06/13/18 08:15 Penicillins Allergy Mild Rash Verified 06/13/18 08:15 Sulfa (Sulfonamide Allergy Mild Rash Verified 06/13/18 08:15 Antibiotics) [Sulfa(Sulfonamide Antibiotics)] acetaminophen [From Tylenol] Allergy Verified 06/13/18 08:15 codeine Allergy Verified 06/13/18 08:15 diphenhydramine HCl Allergy Verified 06/13/18 08:15 [From Benadryl] etanercept Allergy Verified 06/13/18 08:15 fludrocortisone Allergy Verified 06/13/18 08:15 gluten Allergy Verified 06/13/18 08:15 infliximab Allergy Verified 06/13/18 08:15 lactase [From Dairy Aid] Allergy Verified 06/13/18 08:15 naproxen Allergy Verified 06/13/18 08:15 NSAIDS (Non-Steroidal Allergy Verified 06/13/18 08:15 Anti-Inflamma pneumococcal vaccine Allergy Verified 06/13/18 08:15 pregabalin Allergy Verified 06/13/18 08:15 succimer Allergy Verified 06/13/18 08:15 Tetracyclines Allergy Verified 06/13/18 08:15 wheat Allergy Verified 06/13/18 08:15 Beef Containing Products AdvReac Mild Vomiting Verified 06/13/18 08:15 - Home Medications Home Medications: Ambulatory Orders Levothyroxine [Synthroid -] 88 mcg PO DAILY 12/24/17 Metoprolol Tartrate 12.5 mg PO DAILY 12/24/17 Hydroxychloroquine Sulfate [Plaquenil] 400 mg PO DAILY 06/05/18 Albuterol 0.083% Nebulizer Inga [Ventolin 0.083%] 1 neb NEB BID 06/13/18 Albuterol Sulfate Inhaler - [Ventolin Hfa Inhaler -] 1 - 2 inh PO BID 06/13/18 Review of Systems - Review of Systems Constitutional: reports: No Symptoms Eyes: reports: No Symptoms HENT: reports: No Symptoms Neck: reports: No Symptoms Cardiovascular: reports: Chest Pain, Shortness of Breath Respiratory: reports: No Symptoms Gastrointestinal: reports: No Symptoms Musculoskeletal: reports: No Symptoms Integumentary: reports: No Symptoms Neurological: reports: No Symptoms Endocrine: reports: No Symptoms Psychiatric: reports: No Symptoms Vital Signs: Vital Signs Temperature 98.9 F 06/13/18 08:02 Pulse Rate 90 06/13/18 14:25 Respiratory Rate 17 06/13/18 09:15 Blood Pressure 93/59 06/13/18 14:25 O2 Sat by Pulse Oximetry (%) 100 06/13/18 14:25 Constitutional: Yes: Well Nourished, No Distress Eyes: Yes: WNL, Conjunctiva Clear, EOM Intact HENT: Yes: Atraumatic, Normocephalic Neck: Yes: Supple Respiratory: Yes: Regular, CTA Bilaterally Gastrointestinal: Yes: Normal Bowel Sounds, Soft Cardiovascular: Yes: Regular Rate and Rhythm JVD: No Carotid Bruit: No Edema: No - Other Data Labs, Other Data: CBC, BMP 06/13/18 09:08 06/13/18 09:08 INR, PTT INR 0.96 (0.82-1.09) L 06/13/18 09:08 Troponin, BNP 06/13/18 06/13/18 09:08 09:08 Troponin I < 0.03 B-Natriuretic Peptide 373.74 H Troponin, BNP 06/13/18 06/13/18 09:08 09:08 Troponin I < 0.03 B-Natriuretic Peptide 373.74 H Imaging - Results Chest X-ray: Report Reviewed EKG: Image Reviewed (sinus with LBBB, stable compared to prior) Assessment/Plan 63Fh/o nonobstructive CAD, CHF, interstitial lung disease, connective tissue disorder, fibromyalgia with chest pain, dyspnea. presents with chest pain/sob and recent episode of tachycardia to 170s last week during neuro testing chest pain/dyspnea -history atypical for ACS, nonobstructive CAD on cath 2015 - trend troponins, monitor on tele, rule out NE Chronic systolic heart failure - EF 45% 02/2018 - euvolemic on exam, BNP elevated however is similar to prior admissions - continue home beta geoffrey, not on ACEI due to low BP - sees Dr. Sanders for cardiology at [place] Tachycardia - report not available from neurologic testing however reportedly HR 170s during testing - observe on tele dermatomyositis/interstitial lung disease - on home meds
[2018-06-13 17:33] VITALS: BMI 29.8
[2018-06-13] MEDS: HEPARIN NA (PORCINE) 5,000 UNITS/ML 1ML VIAL SQ SCH (22:05)
[2018-06-14] MEDS ORDERED: LEVOTHYROXINE NA 88 MCG TABLET (FP) PO SCH (07:00)
[2018-06-14 09:16] VITALS: BP 91/54; PULSE 92; TEMP 97.8
[2018-06-14] MEDS: HEPARIN NA (PORCINE) 5,000 UNITS/ML 1ML VIAL SQ SCH (09:19)
--- NOTE | 2018-06-14 09:32 | DS ---
Physical Examination Vital Signs: Vital Signs Temperature 97.8 F 06/14/18 09:14 Pulse Rate 92 H 06/14/18 09:14 Respiratory Rate 18 06/14/18 09:14 Blood Pressure 91/54 06/14/18 09:14 O2 Sat by Pulse Oximetry (%) 100 06/14/18 06:00 Constitutional: Yes: No Distress HENT: Yes: Atraumatic Neck: Yes: Supple Cardiovascular: Yes: Regular Rate and Rhythm Respiratory: Yes: CTA Bilaterally Gastrointestinal: Yes: Normal Bowel Sounds Extremities: Yes: WNL Labs: CBC, BMP 06/13/18 09:08 06/13/18 09:08 Discharge Summary Reason For Visit: CHEST PAIN Current Active Problems Chest pain (Acute) SOB (shortness of breath) (Acute) Condition: Guarded - Instructions Diet, Activity, Other Instructions: see your solar energy technician next week Disposition: HOME - Home Medications Comprehensive Discharge Medication List: Ambulatory Orders Levothyroxine [Synthroid -] 88 mcg PO DAILY 12/24/17 Metoprolol Tartrate 12.5 mg PO DAILY 12/24/17 Hydroxychloroquine Sulfate [Plaquenil] 400 mg PO DAILY 06/05/18 Albuterol 0.083% Nebulizer Inga [Ventolin 0.083% Nebulizer Soln -] 1 neb NEB BID 06/13/18 Albuterol Sulfate Inhaler - [Ventolin HFA Inhaler -] 1 - 2 inh PO BID 06/13/18 dc home if cleared by solar energy technician fu pts own solar energy technician
[2018-06-14] MEDS ORDERED: METOPROLOL TARTRATE 25 MG TABLET (FP) PO SCH (10:00)
[2018-06-14] MEDS ORDERED: HYDROXYCHLOROQUINE SO4 200 MG TABLET (FP) PO SCH (10:00)
[2018-06-14] MEDS ORDERED: DOCUSATE SODIUM 100 MG CAPSULE (FP) PO SCH (22:00)
== END 2018-06-14 12:27 | disposition home or self-care (01) ==
LOC: FER 08:02 → FM/S 12:34
PROVIDERS: ADMIT Internal Medicine; ATTEND Internal Medicine
PROC: 3E013GC Introduction of Other Therapeutic Substance into Subcutaneous Tissue, Percutaneous Approach (ICD-10-PCS; principal; 2018-06-13)
PROC: 3E0F7GC Introduction of Other Therapeutic Substance into Respiratory Tract, Via Natural or Artificial Opening (ICD-10-PCS; 2018-06-13)
DX: R07.9 Chest pain, unspecified (principal); R06.02 Shortness of breath; I11.0 Hypertensive heart disease with heart failure; E78.5 Hyperlipidemia, unspecified; E03.9 Hypothyroidism, unspecified; I25.10 Atherosclerotic heart disease of native coronary artery without angina pectoris; I50.20 Unspecified systolic (congestive) heart failure; M19.90 Unspecified osteoarthritis, unspecified site; K58.9 Irritable bowel syndrome, unspecified; M79.7 Fibromyalgia; M35.9 Systemic involvement of connective tissue, unspecified; D64.9 Anemia, unspecified; K90.41 Non-celiac gluten sensitivity; R00.0 Tachycardia, unspecified; Z88.0 Allergy status to penicillin; Z88.2 Allergy status to sulfonamides; Z88.5 Allergy status to narcotic agent; Z88.8 Allergy status to other drugs, medicaments and biological substances; Z91.018 Allergy to other foods
CPT/HCPCS: 36415; 71046-TC-FY; 80053; 82550; 82803; 83880; 84484; 85025; 85610; 93005; 94640; 96372; 99285-25; G0378; J1644; J7620